=== PATIENT | male | born 1945 | race Caucasian/White ===

== ENCOUNTER 2016-06-22 10:41 | Emergency (ER) | payer MEDICARE, BC ==
[2016-06-22 10:52] VITALS: BP 150/80; PULSE 66; RESP 20; TEMP 97
[2016-06-22] MEDS ORDERED: FAMOTIDINE 20 MG TAB PO STA (10:55)
[2016-06-22] MEDS ORDERED: DEXAMETHASONE SOD PHOSPHATE 10 MG/ML 1 ML VIAL IM STA (10:55)
[2016-06-22] MEDS ORDERED: hydrOXYzine HCL 25 MG TAB PO STA (10:56)
--- NOTE | 2016-06-22 11:19 | ED ---
General Adult HPI - General Chief complaint: Allergic Reaction Stated complaint: POSS ALLERGIC REACTION Time Seen by Provider: 06/22/16 10:55 Source: patient, RN notes reviewed, old records reviewed Mode of arrival: ambulatory Limitations: no limitations - History of Present Illness Initial comments: This is a 70-year-old male here for evaluation. The patient presents for evaluation of ALLERGIC reaction, unknown ALLERGIC exposure. Patient does take several. No oral tongue swelling. Patient has had urticarial reaction is R last night, to get better with Benadryl but again woke up this morning with severe itching. Patient denies any new medications, no recent travel history or sick contacts. - Related Data Home Medications Medication Instructions Recorded Confirmed Lisinopril [Lisinopril] 10 mg PO QAM 01/08/15 06/22/16 Lovastatin [Lovastatin] 20 mg PO HS 01/08/15 06/22/16 Latanoprost [Xalatan 0.005%] 1 drop BOTH EYES HS 01/10/15 06/22/16 Allergies Allergy/AdvReac Type Severity Reaction Status Date / Time hydrocodone bitartrate Allergy prolonged Verified 06/22/16 11:10 [From [place]] jeanna Review of Systems ROS Statement: Those systems with pertinent positive or pertinent negative responses have been documented in the HPI. ROS Other: All systems not noted in ROS Statement are negative. Past Medical History Past Medical History: Hyperlipidemia, Hypertension, Prostate Disorder Additional Past Medical History / Comment(s): gallstones, enlarged prostate History of Any Multi-Drug Resistant Organisms: None Reported Past Surgical History: Hernia Repair, Orthopedic Surgery Additional Past Surgical History / Comment(s): arthroscopy left shoulder, umbilical hernia,left inguinal hernia repair,arthroscopy lt knee, arthroscopy right shoulder Past Anesthesia/Blood Transfusion Reactions: No Reported Reaction Past Psychological History: No Psychological Hx Reported Smoking Status: Never smoker Past Alcohol Use History: None Reported Past Drug Use History: None Reported - Past Family History Mother Family Medical History: Cancer Father Family Medical History: Cancer Additional Family Medical History / Comment(s): at age 57 General Exam Limitations: no limitations General appearance: alert, in no apparent distress Head exam: Present: atraumatic, normocephalic, normal inspection Eye exam: Present: normal appearance, PERRL, EOMI. Absent: scleral icterus, conjunctival injection, periorbital swelling ENT exam: Present: normal exam, mucous membranes moist Neck exam: Present: normal inspection. Absent: tenderness, meningismus, lymphadenopathy Respiratory exam: Present: normal lung sounds bilaterally. Absent: respiratory distress, wheezes, rales, rhonchi, stridor Cardiovascular Exam: Present: regular rate, normal rhythm, normal heart sounds. Absent: systolic murmur, diastolic murmur, rubs, gallop, clicks GI/Abdominal exam: Present: soft, normal bowel sounds. Absent: distended, tenderness, guarding, rebound, rigid Extremities exam: Present: normal inspection, full ROM, normal capillary refill. Absent: tenderness, pedal edema, joint swelling, calf tenderness Back exam: Present: normal inspection Neurological exam: Present: alert, oriented X3, CN II-XII intact Psychiatric exam: Present: normal affect, normal mood Skin exam: Present: warm, dry, intact, normal color, urticaria (Diffuse and trunk, hands, arms legs). Absent: rash Course Vital Signs 06/22/16 10:50 Temperature 97 F L Pulse Rate 66 Respiratory 20 Rate Blood Pressure 150/80 O2 Sat by Pulse 97 Oximetry Medical Decision Making - Medical Decision Making 70 male to,ER for evaluation of allergic urticaria , dermatitis , patient be discharged on steroids Antihistamines. Patient has no breathing difficulties no swelling of mouth or tongue Disposition Clinical Impression: Allergic reaction, Adverse reaction to drug Disposition: HOME SELF-CARE Condition: Good Instructions: Urticaria (ED) Referrals: Rod Ruano DO [Primary Care Provider] - 1-2 days
== END 2016-06-22 12:46 | disposition home or self-care (01) ==
LOC: EC 10:41
DX: L50.0 Allergic urticaria (principal); T50.905A Adverse effect of unspecified drugs, medicaments and biological substances, initial encounter; E78.5 Hyperlipidemia, unspecified; I10 Essential (primary) hypertension; Z79.899 Other long term (current) drug therapy
CPT/HCPCS: 99283; 96372; J1100

== ENCOUNTER 2016-06-23 18:06 | Emergency (ER) | payer MEDICARE, BC ==
[2016-06-23] MEDS ORDERED: Acetaminophen-Codeine 300-30mg TAB PO STA (19:02)
[2016-06-23] MEDS ORDERED: IBUPROFEN 600 MG TAB PO STA (19:02)
[2016-06-23] MEDS ORDERED: ONDANSETRON ODT 4 MG TAB PO STA (19:02)
[2016-06-23] MEDS ORDERED: cloNIDine HCL 0.1 MG TAB PO STA (19:02)
--- NOTE | 2016-06-23 19:02 | ED ---
General Adult HPI - General Chief complaint: Headache Stated complaint: headache,HTN Time Seen by Provider: 06/23/16 18:14 Source: patient, RN notes reviewed, old records reviewed Mode of arrival: ambulatory Limitations: no limitations - History of Present Illness Initial comments: This is a 70-year-old male here for evaluation. They patient comes in for evaluation of medication reaction. Patient came in the ER yesterday for evaluation of hives and ALLERGIC reaction, was given steroids injection yesterday as well as antihistamines from. Patient's having flushed face and headache today. After taking steroids. Patient states he's taken steroids before never had this reaction before. Headache is minor. Did have an episode of nausea without vomiting. - Related Data Home Medications Medication Instructions Recorded Confirmed Lisinopril [Lisinopril] 10 mg PO QAM 01/08/15 06/23/16 Lovastatin [Lovastatin] 20 mg PO HS 01/08/15 06/23/16 Latanoprost [Xalatan 0.005%] 1 drop BOTH EYES HS 01/10/15 06/23/16 Previous Rx's Medication Instructions Recorded Famotidine [Pepcid] 40 mg PO BID #30 tab 06/22/16 hydrOXYzine HCL [Atarax] 25 mg PO TID #30 tab 06/22/16 predniSONE 50 mg PO DAILY #5 tab 06/22/16 Allergies Allergy/AdvReac Type Severity Reaction Status Date / Time hydrocodone bitartrate AdvReac prolonged Verified 06/23/16 18:36 [From [place]] hicups Review of Systems ROS Statement: Those systems with pertinent positive or pertinent negative responses have been documented in the HPI. ROS Other: All systems not noted in ROS Statement are negative. Past Medical History Past Medical History: Hyperlipidemia, Hypertension, Prostate Disorder Additional Past Medical History / Comment(s): gallstones, enlarged prostate History of Any Multi-Drug Resistant Organisms: None Reported Past Surgical History: Hernia Repair, Orthopedic Surgery Additional Past Surgical History / Comment(s): arthroscopy left shoulder, umbilical hernia,left inguinal hernia repair,arthroscopy lt knee, arthroscopy right shoulder Past Anesthesia/Blood Transfusion Reactions: No Reported Reaction Past Psychological History: No Psychological Hx Reported Smoking Status: Never smoker Past Alcohol Use History: None Reported Past Drug Use History: None Reported - Past Family History Mother Family Medical History: Cancer Father Family Medical History: Cancer Additional Family Medical History / Comment(s): at age 57 General Exam Limitations: no limitations General appearance: alert, in no apparent distress Head exam: Present: atraumatic, normocephalic, normal inspection Eye exam: Present: normal appearance, PERRL, EOMI. Absent: scleral icterus, conjunctival injection, periorbital swelling ENT exam: Present: normal exam, mucous membranes moist Neck exam: Present: normal inspection. Absent: tenderness, meningismus, lymphadenopathy Respiratory exam: Present: normal lung sounds bilaterally. Absent: respiratory distress, wheezes, rales, rhonchi, stridor Cardiovascular Exam: Present: regular rate, normal rhythm, normal heart sounds. Absent: systolic murmur, diastolic murmur, rubs, gallop, clicks GI/Abdominal exam: Present: soft, normal bowel sounds. Absent: distended, tenderness, guarding, rebound, rigid Extremities exam: Present: normal inspection, full ROM, normal capillary refill. Absent: tenderness, pedal edema, joint swelling, calf tenderness Back exam: Present: normal inspection Neurological exam: Present: alert, oriented X3, CN II-XII intact Psychiatric exam: Present: normal affect, normal mood Skin exam: Present: warm, dry, intact, normal color. Absent: rash Course Vital Signs 06/23/16 18:15 Temperature 97.6 F Pulse Rate 89 Respiratory 20 Rate Blood Pressure 156/90 O2 Sat by Pulse 98 Oximetry - Reevaluation(s) Reevaluation #1: 06/23/16 19:01 Patient discussed to cease taking steroids. Patient's agreeable with plan Reevaluation #2: 06/23/16 19:01 Neck is resolved, blood pressure is improved Medical Decision Making - Medical Decision Making 74 male the ER with adverse reaction to steroids, patient will stop taking steroids at this time. Patient given medication to alleviate headache and high blood pressure, patient to continue antihistamines for ALLERGIC reaction, urticaria Disposition Clinical Impression: Allergic reaction, Adverse reaction to drug Disposition: HOME SELF-CARE Condition: Good Instructions: Prednisone (By mouth) Referrals: Rod Ruano DO [Primary Care Provider] - 1-2 days
[2016-06-23 20:09] VITALS: BP 146/73; PULSE 63; RESP 18; TEMP 97.4
== END 2016-06-23 20:10 | disposition home or self-care (01) ==
LOC: EC 18:06
DX: R51 Headache (principal); R11.0 Nausea; T38.0X5A Adverse effect of glucocorticoids and synthetic analogues, initial encounter; E78.5 Hyperlipidemia, unspecified; I10 Essential (primary) hypertension; Z79.899 Other long term (current) drug therapy; Z88.5 Allergy status to narcotic agent
CPT/HCPCS: 99284

== ENCOUNTER 2017-03-20 09:51 | Day surgery (SDC) | payer MEDICARE, BC ==
[2017-03-13 16:16] VITALS: BMI 30.2
[~2017-03-20 09:51] MED LIST: LACTATED RINGERS 1,000 ML IV SCH
[2017-03-20 10:13] VITALS: RESP 16; TEMP 98.1
--- NOTE | 2017-03-20 11:53 | P.GSHP ---
History of Present Illness H&P Date: 03/20/17 Chief Complaint: Screen colonoscopy This is a 71-year-old male referred from Dr. Rod Baker. Patient presents today for screening colonoscopy. He denies any significant complaints. Past Medical History Past Medical History: Hyperlipidemia, Hypertension, Prostate Disorder Additional Past Medical History / Comment(s): hx. kidney stones, enlarged prostate, hx. colon polyps History of Any Multi-Drug Resistant Organisms: None Reported Past Surgical History: Hernia Repair, Orthopedic Surgery Additional Past Surgical History / Comment(s): arthroscopy left shoulder, umbilical hernia,left inguinal hernia repair,arthroscopy lt knee, arthroscopy right shoulder, cataract surg. Past Anesthesia/Blood Transfusion Reactions: No Reported Reaction Smoking Status: Never smoker - Past Family History Mother Family Medical History: Cancer Father Family Medical History: Cancer Additional Family Medical History / Comment(s): at age 57 Medications and Allergies Home Medications Medication Instructions Recorded Confirmed Type Lisinopril [Lisinopril] 10 mg PO QAM 01/08/15 03/20/17 History Lovastatin [Lovastatin] 20 mg PO HS 01/08/15 03/20/17 History Allergies Allergy/AdvReac Type Severity Reaction Status Date / Time hydrocodone bitartrate AdvReac prolonged Verified 03/20/17 10:11 [From [place]] hiccups Surgical - Exam Vital Signs Temp Pulse Resp BP Pulse Ox 98.1 F 66 16 154/75 97 03/20/17 10:12 03/20/17 10:12 03/20/17 10:12 03/20/17 10:12 03/20/17 10:12 - General well developed, no distress - Eyes PERRL - ENT normal pinna - Neck no masses - Respiratory normal expansion - Cardiovascular Rhythm: regular - Abdomen Abdomen: soft, non tender Assessment and Plan Assessment: We'll perform screening colonoscopy
--- NOTE | 2017-03-20 12:19 | P.OP ---
Date of Procedure: 03/20/17 Preoperative Diagnosis: Screening colonoscopy Postoperative Diagnosis: Diverticulosis Internal and external hemorrhoids Procedure(s) Performed: Colonoscopy Anesthesia: MAC Surgeon: Shaheen Esparza Pathology: none sent Condition: stable Disposition: PACU Description of Procedure: The patient's placed on the endoscopy table lateral position. He received IV sedation. Digital rectal exam was performed which revealed internal and external hemorrhoids. The prostate was symmetrical without nodules. Flexible colonoscope was then placed patient anus passed throughout the entire colon. The colon was quite tortuous. The ileocecal valve visualized. The cecum, ascending and transverse colon appeared normal. In the descending and sigmoid colon is moderate diverticular changes. Scope was then brought back into the rectum and this appeared normal. Scope was withdrawn for patient.
[2017-03-20 12:33] VITALS: BP 121/71; PULSE 61
== END 2017-03-20 12:57 | disposition home or self-care (01) ==
LOC: ORWHC2ENDO 09:51
PROVIDERS: ATTEND Surgery
DX: Z12.11 Encounter for screening for malignant neoplasm of colon (principal); K57.30 Diverticulosis of large intestine without perforation or abscess without bleeding; K64.8 Other hemorrhoids; K64.4 Residual hemorrhoidal skin tags; Q43.8 Other specified congenital malformations of intestine; Z86.010 Personal history of colon polyps; N40.0 Benign prostatic hyperplasia without lower urinary tract symptoms; I10 Essential (primary) hypertension; E78.5 Hyperlipidemia, unspecified; Z87.442 Personal history of urinary calculi; Z79.899 Other long term (current) drug therapy; Z88.5 Allergy status to narcotic agent

== ENCOUNTER → 2018-10-09 | Outpatient (CLI) | payer MEDICARE, BC ==
[2018-10-09 10:17] LABS: Basophils % (A) 0 %; Eosinophils # (A) 0.2 k/uL (0-0.7); Eosinophils % (A) 2 %; HCT 48.2 % (39.0-53.0); Lymphocytes # (A) 1.5 k/uL (1.0-4.8); Lymphocytes % (A) 17 %; MCH 29.3 pg (25.0-35.0); MCHC 33.3 g/dL (31.0-37.0); Mean Platelet Volume 8.1; Monocytes # (A) 0.6 k/uL (0-1.0); Monocytes % (A) 6 %; Neutrophils # (A) 6.5 k/uL (1.3-7.7); Neutrophils % (A) 73 %; Platelet Count 237 k/uL (150-450); RBC 5.47 m/uL (4.30-5.90); RDW 14.6 % (11.5-15.5); WBC 8.8 k/uL (3.8-10.6)
[2018-10-09 10:26] LABS: Potassium 4.9 mmol/L (3.5-5.1)
== END | disposition home or self-care (01) ==
LOC: LABPAT 08:44
PROVIDERS: ATTEND Orthopaedic Surgery
DX: Z01.812 Encounter for preprocedural laboratory examination (principal)
CPT/HCPCS: 36415; 80051; 85025; 93005

== ENCOUNTER → 2018-10-14 | Day surgery (SDC) | payer MEDICARE, BC ==
[2018-10-08 15:16] VITALS: BMI 30.2
--- NOTE | 2018-10-12 21:59 | HP ---
HISTORY AND PHYSICAL DATE OF SURGERY: 10/14/2018 Harvey Ayala is a 73-year-old patient seen with progressive right knee pain. We discussed options for treatment. He elected to proceed with right knee arthroscopy. Consent regarding the procedure was obtained. PAST MEDICAL HISTORY: 1. Hypertension. 2. Hyperlipidemia. PAST SURGICAL HISTORY: 1. Herniorrhaphy. 2. Left knee arthroscopy. 3. Right shoulder arthroscopy. DAILY MEDICATIONS: 1. Lisinopril. 2. Lovastatin. 3. Ibuprofen. ALLERGIES: HYDROCODONE. SOCIAL HISTORY: He denies tobacco use. PHYSICAL EVALUATION OF THE RIGHT KNEE: His range of motion is 0 to 130 degrees. There is a mild effusion present. Tenderness, medial joint line. Positive medial Genny's. Ligaments stable. Hip rotation without pain. His distal neurovascular exam is intact. RIGHT KNEE RADIOGRAPHS: Right knee radiographs reveal moderate osteoarthritic changes. IMPRESSION: 1. Internal derangement of right knee with medial meniscal tear. 2. Right knee osteoarthritis. 3. Hyperlipidemia. 4. Hypertension. PLAN: Right knee arthroscopy with partial meniscectomy and debridement. MMODL / IJN: [id number] /
[~2018-10-14] MED LIST changes: +BUPIVACAIN-EPI 0.25%-1:200,000 30 ML VIAL INTRAARTIC ONE; +DEXAMETHASONE SOD PHOSPHATE 10 MG/ML 1 ML VIAL IV ONE; +LIDOCAINE 1% 20 ML VIAL (10MG/ML) FOR IV START INTRADERMA ONE; +LIDOCAINE 1% INJ 10MG/ML (20 ML MDV) ONE; +MIDAZOLAM 2 MG/2 ML VIAL IV PRN; +MIDAZOLAM 2 MG/2 ML VIAL ONE; +ONDANSETRON 4 MG/2 ML VIAL IVP ONE; +PROPOFOL 10 MG/ML 20 ML VIAL IV ONE; +SUCCINYLCHOLINE CHLORIDE 100 MG/5 ML SYR IV ONE; +fentaNYL (PF) 50 MCG/ML 2 ML AMP IV PRN; +fentaNYL (PF) 50 MCG/ML 2 ML AMP ONE
[2018-10-14 13:22] VITALS: TEMP 97.1
--- NOTE | 2018-10-14 13:25 | P.OP ---
Date of Procedure: 10/14/18 Preoperative Diagnosis: Internal derangement right knee Postoperative Diagnosis: 1. Tear medial meniscus right knee 2. Grade 4 chondromalacia medial femoral condyle right knee 3. Reactive synovitis medial, lateral and suprapatellar compartments right knee Procedure(s) Performed: 1. Arthroscopic partial medial meniscectomy right knee 2. Arthroscopic chondroplasty medial femoral condyle right knee 3. Arthroscopic microfracture medial femoral condyle right knee 4. Arthroscopic partial synovectomy medial, lateral and suprapatellar compartments right knee Anesthesia: RAJATA, local Surgeon: Frandy Hoff Estimated Blood Loss (ml): 7 Pathology: none sent Condition: stable Disposition: PACU Indications for Procedure: 73-year-old patient seen with progressive right knee pain. After having treatment options discussed, he elected to proceed with arthroscopy. Operative Findings: see description of procedure Description of Procedure: Patient was taken to the operative suite. Patient underwent a general anesthetic by the department of anesthesia. Patient was given preoperative antibiotics. The] lower extremity was placed in a well-padded arthroscopic leg brandt. The right leg was prepped and draped in the normal sterile orthopedic fashion. A lateral parapatellar and suprapatellar incision was made. Trochars were inserted. Arthroscopy was initiated. Suprapatellar pouch revealed diffuse thick reactive synovitis. The patellofemoral joint appeared to articulate congruently. There was grade 1/2 chondromalacia of the patellofemoral joint with no osteochondral tears present.. The scope was guided into the medial gutter. Loose bodies or plica were identified. The scope was then guided into the medial compartment. A medial parapatellar incision was made. Trocar inserted followed by probe. There was a complex tear involving the mid body and posterior horn medial meniscus. There was an area of grade 4 chondromalacia central weightbearing surface medial femoral condyle with some osteochondral flap tears present. There was thick reactive synovitis anteriorly. I performed a partial medial meniscectomy getting down to stable meniscal tissue. I performed a chondroplasty of the medial femoral condyle getting down to stable osteochondral tissue. I performed a partial synovectomy decompressing the reactive synovitis. The residual meniscus was stable. There was good decompression of synovitis. There was a 1 cm area of exposed bone in the medial femoral condyle. I performed a microfracture to that area penetrating the bone with resultant bleeding at the microfracture site. Scope and probe were then guided into the intercondylar notch. Cruciates were identified, probed and found to be stable. The scope and probe were then guided into lateral compartment. With some mild fraying of the posterior horn lateral meniscus. There were grade 1 chondromalacia changes lateral compartment with no osteochondral tears present. There was thick reactive synovitis anteriorly. I utilized the motorized shaver to debride that superficial fraying and I performed a partial synovectomy decompressing the thick reactive synovitis. There appeared be good decompression of synovitis. The scope was in guided back into the suprapatellar compartment. I introduced a motorized shaver into the super patellar compartment. I debrided some piecemeal fragments of meniscus I encountered. I performed a partial synovectomy decompressing the reactive synovitis. The shaver was removed. I took one more look on the entire knee, no residual debris. Instruments were now removed from the joint. The joint was infiltrated with .25% Marcaine. Steri-Strips were applied to the portal sites. Sterile dressings were applied. The patient was placed into a FRANCIS hose. No tourniquet was utilized. The patient was awakened, transferred to a bed and taken to recovery stable satisfactory condition.
[2018-10-14 14:08] VITALS: BP 119/69; PULSE 59; RESP 18
== END | disposition home or self-care (01) ==
LOC: OR 10:37
PROVIDERS: ATTEND Orthopaedic Surgery
DX: S83.231A Complex tear of medial meniscus, current injury, right knee, initial encounter (principal); M65.9 Synovitis and tenosynovitis, unspecified; M17.11 Unilateral primary osteoarthritis, right knee; M94.261 Chondromalacia, right knee; I10 Essential (primary) hypertension; E78.5 Hyperlipidemia, unspecified; K21.9 Gastro-esophageal reflux disease without esophagitis; Z87.442 Personal history of urinary calculi; X58.XXXA Exposure to other specified factors, initial encounter; Z88.5 Allergy status to narcotic agent; Z88.8 Allergy status to other drugs, medicaments and biological substances
CPT/HCPCS: 29881; 29879; 29876; J2250; J1100; J0690; J2405; J2001; J3010; J0330; J2704

== ENCOUNTER 2019-04-03 12:14 | Emergency (ER) | payer MEDICARE, BC ==
[2019-04-03 12:29] VITALS: PULSE 57; RESP 18; TEMP 98
[2019-04-03 13:10] VITALS: BP 156/94
--- NOTE | 2019-04-03 13:25 | ED ---
Recheck HPI - General Chief Complaint: Recheck/Abnormal Lab/Rx Stated Complaint: elevated BP Time Seen by Provider: 04/03/19 12:31 Source: patient Mode of arrival: ambulatory Limitations: no limitations - History of Present Illness Initial Comments: Patient is a 73-year-old male presenting to the emergency department with concerns for elevated blood pressure. Patient states the last few days has been noticing slightly increasing so he's been tracking and every few hours since then. Patient states he is normally in the 120s to 130s. The last few days has been increasing to the 150s with today in the 170s. He states just prior to arrival he did his blood pressure was 180s. Patient denies having any other symptoms including headache, blurry vision, chest pain, shortness of breath, nausea. He states he has been on lisinopril for over 20 years now and has not had any issues with his blood pressure. Patient admits to having a right knee arthroscopic done in September and has been struggling with continued pain in his knee. He does have a follow-up with his knee surgeon in a few weeks. Patient states he has been taking ibuprofen for his knee discomfort. He has no other medicine changes. He denies any other complaints at this time. Upon arrival to the ER, blood pressure is 183/87, rest of vitals are normal. - Related Data Home Medications Medication Instructions Recorded Confirmed Lisinopril 10 mg PO QAM 01/08/15 10/14/18 Lovastatin 20 mg PO HS 01/08/15 10/14/18 Previous Rx's Medication Instructions Recorded traMADol HCl [Ultram] 50 mg PO Q6H PRN #28 tab 10/14/18 Allergies Allergy/AdvReac Type Severity Reaction Status Date / Time hydrocodone bitartrate AdvReac prolonged Verified 04/03/19 12:29 [From [place]] hiccups Review of Systems ROS Statement: Those systems with pertinent positive or pertinent negative responses have been documented in the HPI. ROS Other: All systems not noted in ROS Statement are negative. Past Medical History Past Medical History: GERD/Reflux, Hyperlipidemia, Hypertension, Osteoarthritis (OA) Additional Past Medical History / Comment(s): hx. kidney stones, was using eye drops for pressure but none needed since cataract surgery History of Any Multi-Drug Resistant Organisms: None Reported Past Surgical History: Hernia Repair, Orthopedic Surgery, Tonsillectomy Additional Past Surgical History / Comment(s): arthroscopy yeni shoulders,umbilical hernia,left inguinal hernia repair,arthroscopy lt knee x2, yeni cataract surg. Past Anesthesia/Blood Transfusion Reactions: No Reported Reaction Past Psychological History: No Psychological Hx Reported Smoking Status: Never smoker Past Alcohol Use History: None Reported Past Drug Use History: None Reported - Past Family History Mother Family Medical History: Cancer Additional Family Medical History / Comment(s): breast Father Family Medical History: Cancer Additional Family Medical History / Comment(s): at age 57 General Exam - General Exam Comments Initial Comments: GENERAL: Well-appearing, well-nourished and in no acute distress. HEAD: Atraumatic, normocephalic. EYES: Pupils equal round and reactive to light, extraocular movements intact, sclera anicteric, conjunctiva are normal. ENT: TMs normal, nares patent, oropharynx clear without exudates. Moist mucous membranes. NECK: Normal range of motion, supple without lymphadenopathy or JVD. LUNGS: Breath sounds clear to auscultation bilaterally and equal. No wheezes rales or rhonchi. HEART: Regular rate and rhythm without murmurs, rubs or gallops. ABDOMEN: Soft, nontender, normoactive bowel sounds. No guarding, no rebound. No masses appreciated. : Deferred EXTREMITIES: Normal range of motion, no pitting or edema. No clubbing or cyanosis. Sensation is equal in bilateral lower and upper extremities. NEUROLOGICAL: Cranial nerves II through XII grossly intact. Normal speech, normal gait. PSYCH: Normal mood, normal affect. SKIN: Warm, Dry, normal turgor, no rashes or lesions noted. Limitations: no limitations Course Vital Signs 04/03/19 04/03/19 12:26 13:10 Temperature 98.0 F Pulse Rate 57 L Respiratory 18 Rate Blood Pressure 183/87 156/94 O2 Sat by Pulse 96 Oximetry Medical Decision Making - Medical Decision Making Patient is a 73-year-old male presenting with concerns for elevated blood pressure last few days. He is completely asymptomatic today. His exam is unremarkable. Upon arrival to the ER his blood pressure was 183/87. Upon recheck approximately 45 min later it is 156/94. He remains asymptomatic. Patient will continue to monitor blood pressure 3 times a day and will follow up with his PCP. Return parameters were discussed with the patient he verbalizes understanding. He is stable for discharge at this time. Case discussed with Dr. Marin. Disposition Clinical Impression: Hypertension Disposition: HOME SELF-CARE Condition: Stable Instructions (If sedation given, give patient instructions): Hypertension (ED) Additional Instructions: Please return to the Emergency Department if symptoms worsen or any other concerns. Only check blood pressure 3 times a day, morning, noon, and the evening. Follow-up with PCP as discussed. Is patient prescribed a controlled substance at d/c from ED?: No Referrals: Rod Ruano DO [Primary Care Provider] - 1-2 days
== END 2019-04-03 13:33 | disposition home or self-care (01) ==
LOC: EC 12:14
DX: R03.0 Elevated blood-pressure reading, without diagnosis of hypertension (principal); I10 Essential (primary) hypertension; E78.5 Hyperlipidemia, unspecified; M19.90 Unspecified osteoarthritis, unspecified site; Z79.899 Other long term (current) drug therapy; Z88.8 Allergy status to other drugs, medicaments and biological substances
CPT/HCPCS: 99283

== ENCOUNTER → 2019-11-04 | Outpatient (CLI) | payer MEDICARE, BC | END | disposition home or self-care (01) | LOC: LABPAT 08:33 | PROVIDERS: ATTEND Orthopaedic Surgery | DX: Z01.812 Encounter for preprocedural laboratory examination (principal) | CPT/HCPCS: 36415; 87070 ==

== ENCOUNTER 2019-12-07 05:54 | Day surgery (SDC) | payer MEDICARE, BC ==
--- NOTE | 2019-12-06 16:33 | HP ---
HISTORY AND PHYSICAL DATE OF SERVICE: 12/07/2019 Harvey Ayala is a 74-year-old patient seen with progressive right knee pain. Treatment options were discussed. He elected to proceed with right total knee arthroplasty. Consent regarding the procedure was obtained. Clearance was provided by Dr. Rod Ruano. PAST MEDICAL HISTORY: Hypertension, hyperlipidemia. PAST SURGICAL HISTORY: Knee arthroscopy, shoulder arthroscopy, herniorrhaphy. DAILY MEDICATIONS: Lisinopril, lovastatin, ibuprofen. ALLERGIES: HYDROCODONE. SOCIAL HISTORY: Denies current tobacco use. PHYSICAL EVALUATION OF THE RIGHT KNEE: His range of motion is negative 2 to 130. Tenderness along medial joint line. Crepitus along the medial patellofemoral compartments with range of motion. Pain with patellofemoral compression. Ligaments stable. Hip rotation without pain. Distal neurovascular exam is intact. RADIOGRAPHS: Right knee radiographs reveal severe osteoarthritic changes. IMPRESSION: 1. Right knee osteoarthritis. 2. Hypertension. 3. Hyperlipidemia. PLAN: Right total knee arthroplasty. MMODL / IJN: [id number] /
[~2019-12-07 05:54] MED LIST changes: +ACETAMINOPHEN TAB 500 MG TAB PO ONE; -BUPIVACAIN-EPI 0.25%-1:200,000 30 ML VIAL INTRAARTIC ONE; -DEXAMETHASONE SOD PHOSPHATE 10 MG/ML 1 ML VIAL IV ONE; -LACTATED RINGERS 1,000 ML IV SCH; -LIDOCAINE 1% 20 ML VIAL (10MG/ML) FOR IV START INTRADERMA ONE; -LIDOCAINE 1% INJ 10MG/ML (20 ML MDV) ONE; +MELOXICAM 7.5 MG TAB PO ONE; -MIDAZOLAM 2 MG/2 ML VIAL IV PRN; -MIDAZOLAM 2 MG/2 ML VIAL ONE; -ONDANSETRON 4 MG/2 ML VIAL IVP ONE; -PROPOFOL 10 MG/ML 20 ML VIAL IV ONE; -SUCCINYLCHOLINE CHLORIDE 100 MG/5 ML SYR IV ONE; +TRANEXAMIC ACID 1,000 MG in SODIUM CHLORIDE 0.9% 100 ML IVPB ONE; -fentaNYL (PF) 50 MCG/ML 2 ML AMP IV PRN; -fentaNYL (PF) 50 MCG/ML 2 ML AMP ONE
[2019-12-07] MEDS ORDERED: ROPIVACAINE 246.25 MG, EPINEPHrine 0.5 MG, KETOROLAC 30 MG, cloNIDine HCL/PF 80 MCG, WA... MISCELLANE ONE ×5 (06:00)
[2019-12-07] MEDS ORDERED: LACTATED RINGERS 1,000 ML IV SCH (06:01)
[2019-12-07] MEDS ORDERED: HYDROmorphone 0.5 MG/0.5 ML SYRINGE IVP PRN ×3 (06:01→09:18)
[2019-12-07] MEDS ORDERED: DEXAMETHASONE SOD PHOSPHATE 10 MG/ML 1 ML VIAL IV ONE (06:01)
[2019-12-07] MEDS ORDERED: LIDOCAINE 1% (10MG/ML) FOR IV START INTRADERMA PRN (06:01)
[2019-12-07] MEDS ORDERED: ONDANSETRON 4 MG/2 ML VIAL IVP ONE (06:01)
[2019-12-07] MEDS ORDERED: fentaNYL (PF) 50 MCG/ML 2 ML AMP IV ONE (06:58)
[2019-12-07] MEDS ORDERED: MIDAZOLAM 2 MG/2 ML VIAL IV ONE (06:58)
[2019-12-07] MEDS ORDERED: fentaNYL (PF) 50 MCG/ML 2 ML AMP ONE (07:28)
[2019-12-07] MEDS ORDERED: MIDAZOLAM 2 MG/2 ML VIAL ONE (07:28)
[2019-12-07] MEDS ORDERED: TRANEXAMIC ACID 1,000 MG/10 ML VIAL ONE (07:28)
[2019-12-07] MEDS ORDERED: PROPOFOL 10 MG/ML 20 ML VIAL IV ONE (07:28)
[2019-12-07] MEDS ORDERED: SODIUM CHLORIDE 0.9% 100 ML BAG ONE (07:28)
[2019-12-07] MEDS ORDERED: LACTATED RINGERS 1,000 ML IV ONE (08:37)
[2019-12-07] MEDS ORDERED: HYDROcodone/APAP 5-325MG 1 EACH TAB PO PRN ×2 (09:18)
[2019-12-07] MEDS ORDERED: NALOXONE 0.4 MG/ML 1 ML VIAL IV PRN (09:18)
[2019-12-07] MEDS ORDERED: ONDANSETRON 4 MG/2 ML VIAL IVP PRN (09:18)
--- NOTE | 2019-12-07 09:18 | P.OP ---
Date of Procedure: 12/07/19 Preoperative Diagnosis: Right knee osteoarthritis Postoperative Diagnosis: Right knee osteoarthritis Procedure(s) Performed: Right total knee arthroplasty Implants: 1. Depuy attune size 7 right cruciate-retaining cemented femur 2. Depuy attune size 7 fixed bearing cemented tibial baseplate 3. Depuy attune size 7 fixed bearing cruciate retaining 6 mm polyethylene tibial insert 4. Depuy attune 41 mm all polyethylene cemented patella Anesthesia: regional (adductor canal catheter), local, spinal Surgeon: Farndy Hoff Shore Working Supervisor #1: Vince Mayer Estimated Blood Loss (ml): 50 Pathology: other (Bone) Condition: stable Disposition: PACU Indications for Procedure: 74-year-old patient seen with symptomatic right knee osteoarthritis. After treatment options were discussed, he elected to proceed with total knee art hroplasty. Operative Findings: see description of procedure Description of Procedure: Patient was taken to the operative suite after having an adductor canal catheter placed by the department of anesthesia. Patient underwent a spinal anesthetic by the department of anesthesia. Patient was given preoperative IV intake antibiotics and TXA. A well-padded tourniquet was placed about the right lower extremity. The lower extremity was then prepped and draped in the normal sterile orthopedic fashion. The extremity was elevated, a tourniquet was insufflated to 300. A standard anterior incision was made sharply through skin. Dissection was taken down through the subcutaneous soft tissues down to the extensor mechanism. A medial arthrotomy was performed, patella was everted and knee was flexed. There was advanced osteoarthritis noted. I introduced my distal intramedullary femoral drill. I then introduced the distal femoral cutting jig. Markus SCHWARTZ secured the cutting jig with 2 pins. I held retractors in position while Markus SCHWARTZ performed the distal femoral resection through the guide area we now removed her distal femoral cutting guide. We now placed our 4-in-1 femoral cutting block and positioned and it was secured with 2 pins by Markus SCHWARTZ while I held the block in position. The distal femoral finishing was now completed. A proximal tibial cutting guide was positioned. I held the guide in the appropriate position with both hands well Markus SCHWARTZ inserted stabilizing pins into the guide. Proximal tibial cut was made. We now placed a trial femoral component into position, along with an appropriate size tibial tray and insert. We now took the knee through range of motion and had full extension good flexion and good overall soft tissue balance noted. The patella was everted and stabilized with 2 towel clips held by Markus SCHWARTZ while I performed a flush with patellar quad tendon utilizing a fresh sawblade. We templated the patella, appropriate drill holes were made. An appropriate trial patella was positioned, knee was taken through full range of motion with the patella tracking very nicely. The trial patella was removed. Drill holes were made through the femoral component. All trial components were removed after marking off the appropriate rotation of the tibia. Retractors w ere now positioned along the proximal tibia. An appropriate keel punch was made with the appropriate size tibial guide by myself on Markus SCHWARTZ assisted by holding retractors. At this point appropriate size implants were chosen and opened. The joint was irrigated copiously with pulse lavage mechanical irrigation. The posterior capsule was infiltrated with local analgesic. The wound was irrigated with pulse lavage mechanical irrigation. We mixed antibiotic methylmethacrylate. We placed the knee into flexion. We placed multiple retractors assisted by Markus SCHWARTZ to expose the proximal tibia. Once the methyl methacrylate was ready, the tibial component was cemented into place removing any excess methylmethacrylate form by both myself and Markus SCHWARTZ. The femoral component was cemented into place removing the removing any excess methylmethacrylate performed by both myself and Markus SCHWARTZ. We then inserted the appropriate size polyethylene tibial insert. We made sure that it was locked into position. We took the knee into full extension, and then back in a flexion making sure we had removed any excess methylmethacrylate. The patellar component was then cemented down and secured with clamp. Excess methylmethacrylate removed. We kept the knee in full extension, patellar clamp in position until methylmethacrylate had hardened. Once it had hardened the patellar clamp was removed. The knee was taken through full range of motion. The patella tracked nicely. There was good soft tissue balancing. The tourniquet was now released. Additional hemostasis was achieved via electrocautery. A second gram of TXA was given. The wound again was irrigated with pulse lavage mechanical irrigation. The superficial soft tissues were infiltrated local analgesic. The extensor mechanism was repaired with Vicryl. We checked the repair with range of motion and it was stable. The subcutaneous soft tissues were repaired with Vicryl in layers. The skin was approximated with pernio/Dermabond. Sterile dressings were applied followed by loose web roll and Evens bandage. The patient was transferred to a bed, and taken to recovery in stable and satisfactory condition. Markus SCHWARTZ assisted with this complex procedure.
[2019-12-07] MEDS ORDERED: ROPIVACAINE 0.2%-NS ON-Q PUMP 1,090 MG, EMPTY PAIN BALL 1 EACH MISCELLANE PRN (09:23)
--- NOTE | 2019-12-07 09:26 | P.ANPRN ---
Procedure Note - Anesthesia - Nerve Block Performed Right Adductor Canal Time Out Performed: Yes (06:55) Date of Procedure: 12/07/19 Procedure Start Time: :55 Procedure Stop Time: :18 Location of Patient: PreOp Indication: Acute Post-Operative Pain (Dr Hoff), Requested by Surgeon Sedation Type: Sedate with meaningful contact maintained Preparation: Sterile Prep, Sterile Dressing Position: Supine Catheter: Indwelling Needle Types: Pajunk Needle Gauge: 21 Ultrasound used to visualize needle placement: Yes Ultrasound used to observe medication spread: Yes Injectate: 0.5% Ropivacaine (see comment for volume) (20cc) Blood Aspirated: No Pain Paresthesia on Injection Noted: No Resistance on Injection: Normal Image Stored and Saved: Yes Events: Uneventful and Well Tolerated
[2019-12-07] MEDS: LACTATED RINGERS 1,000 ML IV SCH (10:08)
--- NOTE | 2019-12-07 10:09 | XR ---
EXAMINATION TYPE: XR knee limited RT DATE OF EXAM: 12/07/2019 CLINICAL HISTORY: Postoperative evaluation Two views of the right knee are submitted. Identified are changes of total knee arthroplasty with femoral and tibial components appearing well seated. Postsurgical soft tissue changes are noted. Alignment is anatomic.
[2019-12-07] MEDS: HYDROmorphone 0.5 MG/0.5 ML SYRINGE IVP PRN ×2 (14:37→20:19)
[2019-12-07] MEDS: ENOXAPARIN 30 MG/0.3 ML SYRINGE SQ SCH (20:24)
[2019-12-07] MEDS ORDERED: SENNOSIDES-DOCUSATE SODIUM 1 EACH TAB PO SCH (21:00)
[2019-12-08] MEDS: HYDROmorphone 0.5 MG/0.5 ML SYRINGE IVP PRN ×3 (00:01→08:58)
[2019-12-08] MEDS: LACTATED RINGERS 1,000 ML IV SCH (02:42)
[2019-12-08 06:32] LABS: Basophils % (A) 0 %; Eosinophils % (A) 0 %; HCT 38.8 % (39.0-53.0); Lymphocytes # (A) 1.1 k/uL (1.0-4.8); Lymphocytes % (A) 9 %; MCH 29.4 pg (25.0-35.0); MCHC 32.2 g/dL (31.0-37.0); MCV 91.2 fL (80.0-100.0); Mean Platelet Volume 8.2; Monocytes # (A) 0.9 k/uL (0-1.0); Monocytes % (A) 7 %; Neutrophils # (A) 10.5 k/uL (1.3-7.7); Neutrophils % (A) 83 %; Platelet Count 184 k/uL (150-450); RBC 4.25 m/uL (4.30-5.90); RDW 12.9 % (11.5-15.5); WBC 12.7 k/uL (3.8-10.6)
[2019-12-08 06:39] LABS: HGB 12.5 gm/dL (13.0-17.5)
[2019-12-08] MEDS: ENOXAPARIN 30 MG/0.3 ML SYRINGE SQ SCH (07:02)
[2019-12-08 08:32] VITALS: BP 112/69; PULSE 62; RESP 18; TEMP 98
[2019-12-08] MEDS ORDERED: MELOXICAM 7.5 MG TAB PO SCH (09:00)
[2019-12-08] MEDS ORDERED: traMADol 50 MG TAB PO PRN (09:33)
--- NOTE | 2019-12-08 11:51 | P.PN ---
Subjective Progress Note Date: 12/08/19 Principal diagnosis: Status post right total knee arthroplasty patient evaluated at bedside today, he is resting comfortably. He is done very well with therapy. His pain is well-controlled. He denies any chest pain, shortness of breath, nausea, vomiting or stomach discomfort. Objective - Vital Signs Vital signs: Vital Signs Temp 98.0 F 12/08/19 07:00 Pulse 62 12/08/19 07:00 Resp 18 12/08/19 07:00 BP 112/69 12/08/19 07:00 Pulse Ox 96 12/08/19 07:00 Intake & Output 12/07/19 12/08/19 12/08/19 18:59 06:59 18:59 Intake Total 1950 Output Total 50 Balance 1900 Weight 95.8 kg Intake: IV 1949 Output: Estimated Blood Loss 50 Other: Voiding Method Toilet Toilet # Voids 1 - Exam Right lower extremity: Incision is clean, dry, and intact. The foam dressing is in good condition. There is minimal soft tissue swelling and ecchymosis surrounding the medial and lateral aspects of the incision. Calf is soft, no tenderness with palpation. Plantar flexion, dorsiflexion, EHL, FHL are intact. Sensory exam to light touch throughout the extremity is intact, dorsal pedis pulses 2+. - Labs CBC & Chem 7: 12/08/19 06:03 Labs: Abnormal Lab Results - Last 24 Hours (Table) 12/08/19 Range/Units 06:03 WBC 12.7 H (3.8-10.6) k/uL RBC 4.25 L (4.30-5.90) m/uL Hgb 12.5 L D (13.0-17.5) gm/dL Hct 38.8 L (39.0-53.0) % Neutrophils # 10.5 H (1.3-7.7) k/uL Assessment and Plan Assessment: Status post right total knee arthroplasty Plan: Pain control, discharge home on tramadol 50 mg DVT prophylaxis, aspirin 81 mg twice a day Wound care instructions discussed Medical recommendations Home therapy and nursing after discharge Plan for discharge home today Time with Patient: Less than 30
--- NOTE | 2019-12-08 11:53 | P.DS ---
Providers Date of admission: 12/07/2019 Expected date of discharge: 12/08/19 Attending physician: Frandy Hoff Primary care physician: Rdo Ruano [facility] Course: Date of admission: 12/07/2019 Date of discharge: 12/08/2019 Admission diagnosis: Status post right total knee arthroplasty Discharge diagnosis: Same Attending physician: Dr. Hoff Surgical procedures: Right total knee arthroplasty Brief history: Patient is a 74-year-old male with a history of Progressive primary right knee osteoarthritis. At this point patient has failed conservative treatment measures and has opted to proceed with a elective Right total knee arthroplasty. Hospital course: Details of patient's surgery can be found in operative report. Patient tolerated the procedure well and was subsequently transported to orthopedic floor. Patient's orthopeidc and medical care was provided daily. Patient had daily laboratory tests performed for evaluation of overall blood counts. Patient had daily physical therapy to include strengthening range of motion as well as education with walker ambulation. Patient was treated with Lovenox for their postoperative DVT prophylaxis during their inpatient stay. Patient was noted to have a relatively uneventful postoperative course. Patient reported satisfactory pain control with oral pain medications by postoperative day 0. Patient showed satisfactory progress with physical therapy. Patient moved steadily through the program and had no difficulty meeting the goals by postoperative day 1. Given patient's otherwise satisfactory course and having met physical therapy goals, plan is to discharge patient home on postoperative day 1. Discharge condition/disposition: Patient will be discharged home in stable condition. Discharge medications: Instructions are given on resumption of patient's normal daily medications per primary care recommendation, in addition patient will be prescribed tramadol 50 mg, Colace 100 mg, aspirin 81 mg. Discharge instructions: 1. Wound care and infection precautions, keep incision dry and covered while showering, no lotions, creams, moisturizers. No soaking, tubs, pools, hottubs. Do not scrub over the incision. 2. Weight-bear as tolerated with walker / cane until follow-up. 3. Ice and elevate when necessary. Do not exceed 20 minutes per hour with ice pack. 4. Utilize compression sleeve until seen at first follow up appointment. 5. Visiting nursing care. 6. Home physical therapy including home CPM. 7. Pain meds and anticoagulants per prescription. 8. Pain medication has potential to cause constipation. Increase oral fluid and fiber intake. Contact primary care provider if you have not had a bowel movement within 48 hours after discharge 9. No anti-inflammatory medication until discussed at first post operative visit, this including Motrin, Aleve, Mobic, Diclofenac 10. Follow up in office at 2 weeks postop with Markus Mayer PA-C 11. Follow up with your primary care doctor 7-10 days after discharge. 12. Contact [facility] with any questions, . Procedures: Right total knee arthroplasty Patient Condition at Discharge: Good Plan - Discharge Summary Discharge Rx Participant: No New Discharge Prescriptions: New Aspirin [Adult Low Dose Aspirin EC] 81 mg PO BID #60 tablet. Docusate [Colace] 100 mg PO DAILY #30 capsule traMADol HCl [Ultram] 50 mg PO Q6H PRN #28 tab PRN Reason: Pain No Action lisinopriL [Lisinopril] 20 mg PO QAM Simvastatin [Zocor] 20 mg PO HS Calcium Carbonate [Tums] 1 - 2 tab PO DAILY PRN PRN Reason: Indigestion Discharge Medication List lisinopriL [Lisinopril] 20 mg PO QAM 01/08/15 [History] Calcium Carbonate [Tums] 1 - 2 tab PO DAILY PRN 12/06/19 [History] Simvastatin [Zocor] 20 mg PO HS 12/06/19 [History] Aspirin [Adult Low Dose Aspirin EC] 81 mg PO BID #60 tablet. 12/08/19 [Rx] Docusate [Colace] 100 mg PO DAILY #30 capsule 12/08/19 [Rx] traMADol HCl [Ultram] 50 mg PO Q6H PRN #28 tab 12/08/19 [Rx] Follow up Appointment(s)/Referral(s): Vince Mayer PAC [PHYSICIAN ADMINISTRATIVE ANALYST] - 2 Weeks [facility] Visiting Nurse, [NON-STAFF] - Activity/Diet/Wound Care/Special Instructions: Orthopedic Discharge Instructions: 1. Wound care and infection precautions, keep incision dry and covered while showering, no lotions, creams, moisturizers. No soaking, pools, hot tubs. Do not scrub over incision. 2. Weight-bear [as tolerated] with walker / cane until follow-up. 3. Ice and elevate when necessary. Do not exceed 20 minutes per hour with ice pack. 4. Utilize compression sleeve until seen at first follow up appointment. 5. Pain meds and anticoagulants per prescription. 6. Pain medication has potential to cause constipation. Increase oral fluid and fiber intake. Contact primary care provider if you have not had a bowel movement within 48 hours after discharge. 7. No anti-inflammatory medication until discussed at first post operative visit, this including Motrin, Aleve, Mobic, Diclofenac 8. Follow up in office at 2 weeks postop with Markus Mayer PA-C 9. Follow up with your primary care doctor 7-10 days after discharge. 10. Contact [facility] with any questions, [phone]. 11. *Please call [facility] once home to arrange for delivery of Continuous Passive Motion (CPM) machine: [phone]. Discharge Disposition: HOME WITH HOME HEALTH SERVICES
[2019-12-08] MEDS ORDERED: PANTOPRAZOLE 40 MG/10 ML VIAL IVP SCH (12:15)
--- NOTE | 2019-12-08 12:35 | P.PN ---
Progress Note - Text Progress Note Date: 12/08/19 patient was seen at 6:30 AM this morning patient is POD 1 s/p right total knee, patient has a right adductor canal catheter patient reports good pain management rating his pain as 2-3/10 he denies excessive numbness or weakness no redness or discharge at the the catheter insertion site patient will pull out the catheter once the onQ pump is empty
--- NOTE | 2019-12-08 13:09 | P.CONS ---
History of Present Illness - Reason for Consult Consult date: 12/08/19 Medical management hypertension, gastroesophageal reflux disease Requesting physician: Frandy Hoff - Chief Complaint Right knee osteoarthritis - History of Present Illness This is a 74-year-old gentleman with past medical history of gastroesophageal reflux disease, hyperlipidemia, hypertension, right knee osteoarthritis, failed outpatient treatment, status post right total knee arthroplasty postop day 1. Tolerated procedure well. Ambulating, tolerating exertion well. Passing flatus. Denies nausea or vomiting. Denies chest pain, palpitations or shortness of breath. Pain controlled. Afebrile, mild leukocytosis, 12.7, hemoglobin 12.5, platelets 184. Review of Systems Constitutional: Denied any fatigue denied any fever. Cardio vascular: denied any chest pain, palpitations Gastrointestinal denied any nausea vomiting Pulmonary: Denied any shortness of breath cough Neurologic denied any new focal deficits ROS Statement: Those systems with pertinent positive or pertinent negative responses have been documented in the HPI. ROS Other: All systems not noted in ROS Statement are negative. Past Medical History Past Medical History: GERD/Reflux, Hyperlipidemia, Hypertension, Osteoarthritis (OA) Additional Past Medical History / Comment(s): hx. kidney stones, was using eye drops for pressure but none needed since cataract surgery History of Any Multi-Drug Resistant Organisms: None Reported Past Surgical History: Hernia Repair, Orthopedic Surgery Additional Past Surgical History / Comment(s): RIGHT KNEE ARTHRO IN 2019. BILATERAL CATARACTS WITH LENS IMPLANTS. Past Anesthesia/Blood Transfusion Reactions: No Reported Reaction Past Psychological History: No Psychological Hx Reported Smoking Status: Never smoker Past Alcohol Use History: None Reported Past Drug Use History: None Reported - Past Family History Father Family Medical History: Cancer, Deep Vein Thrombosis (DVT) Mother Family Medical History: Cancer Medications and Allergies Home Medications Medication Instructions Recorded Confirmed Type lisinopriL [Lisinopril] 20 mg PO QAM 01/08/15 12/07/19 History Calcium Carbonate [Tums] 1 - 2 tab PO DAILY PRN 12/06/19 12/07/19 History Simvastatin [Zocor] 20 mg PO HS 12/06/19 12/07/19 History Aspirin [Adult Low Dose Aspirin EC] 81 mg PO BID #60 tablet.dr 12/08/19 Rx Docusate [Colace] 100 mg PO DAILY #30 capsule 12/08/19 Rx Sennosides-Docusate Sodium 2 each PO HS tab 12/08/19 Rx [Senokot-S] traMADol HCl [Ultram] 50 mg PO Q6H PRN #28 tab 12/08/19 Rx Allergies Allergy/AdvReac Type Severity Reaction Status Date / Time hydrocodone bitartrate AdvReac prolonged Verified 12/07/19 06:25 [From [place]] hiccups Physical Exam Vitals: Vital Signs Temp Pulse Pulse Pulse Resp BP BP 12/08/19 07:00 98.0 F 62 18 112/69 12/08/19 01:45 97.8 F 69 16 114/55 12/08/19 00:00 16 12/07/19 19:00 98.4 F 63 17 119/61 12/07/19 16:00 68 20 12/07/19 14:54 98.1 F 68 20 130/69 12/07/19 14:12 17 12/07/19 13:30 18 119/70 12/07/19 12:15 76 112/68 12/07/19 12:00 71 110/65 12/07/19 11:45 77 110/65 12/07/19 11:30 68 113/63 12/07/19 11:15 67 108/67 12/07/19 11:00 71 102/67 12/07/19 10:45 65 129/76 12/07/19 10:30 97.5 F L 61 121/72 12/07/19 10:17 63 16 109/65 12/07/19 10:15 58 L 16 109/65 12/07/19 10:00 58 L 16 102/51 12/07/19 09:45 56 L 16 98/54 Pulse Ox 12/08/19 07:00 96 12/08/19 01:45 93 L 12/08/19 00:00 12/07/19 19:00 94 L 12/07/19 16:00 12/07/19 14:54 95 12/07/19 14:12 12/07/19 13:30 96 12/07/19 12:15 12/07/19 12:00 12/07/19 11:45 12/07/19 11:30 12/07/19 11:15 12/07/19 11:00 95 12/07/19 10:45 95 12/07/19 10:30 96 10/14/20 10:17 92 L 12/07/19 10:15 93 L 12/07/19 10:00 93 L 12/07/19 09:45 93 L Intake and Output 12/07/19 12/08/19 12/08/19 22:59 06:59 14:59 Other: Voiding Method Toilet Toilet # Voids 1 1 PHYSICAL EXAM: VITAL SIGNS: As above GENERAL: Sitting up in a chair, no acute distress HEENT: Conjunctivae normal. eyes normal. Oral mucosa moist NECK: No JVD. No thyroid enlargement. No LNs CARDIOVASCULAR: S1, S2 regular.. No murmur RESPIRATION: Breath sounds diminished in the bases. No rhonchi or crackles. No bronchial breathing. ABDOMEN: Soft, nontender . No guarding. no masses palpable. No ascites, No hepatosplenomegaly.Bowel sounds heard. LEGS: Right lower extremity, the surgical site with mild edema, dressing clean dry and intact. Denies calf tenderness. +DP. PSYCHIATRY: Alert and oriented X3, mood and affect normal. NERVOUS SYSTEM: Cranial N 2-12 grossly normal. Moves all 4 limbs. No focal deficits. Strength and sensation grossly intact.. Skin: Warm and dry, no rash Results CBC & Chem 7: 12/08/19 06:03 Labs: Abnormal Lab Results - Last 24 Hours (Table) 12/08/19 Range/Units 06:03 WBC 12.7 H (3.8-10.6) k/uL RBC 4.25 L (4.30-5.90) m/uL Hgb 12.5 L D (13.0-17.5) gm/dL Hct 38.8 L (39.0-53.0) % Neutrophils # 10.5 H (1.3-7.7) k/uL Assessment and Plan Assessment: Right knee osteoarthritis, status post right total knee arthroplasty Hypertension, currently systolic blood pressure in the 1 teens, resume JUAN inhibitor starting tomorrow Mild leukocytosis, suspect reactive Mild acute postoperative blood loss anemia Hyperlipidemia Gastroesophageal reflux disease, on PPI Plan: Continue on current medication regime ,monitoring and symptomatic treatment. Pain medication/DVT prophylaxis as per primary. GI prophylaxis in place. Home meds have been reviewed and resumed, with JUAN inhibitor to be resumed tomorrow. Medically cleared for discharge. CBC in 3 days, follow-up with PCP, Dr. Rod Ruano in [address] Hoff for the consult. The impression and plan of care has been dictated as directed. : I performed a history and examination of this patient, discussed the same with the dictator. I agree with the dictator's note ,documented as a scribe. Any additional findings or plans will be noted.
[2019-12-08] MEDS ORDERED: ATORVASTATIN 10 MG TAB PO SCH (21:00)
== END 2019-12-08 13:15 | disposition home health service (06) ==
LOC: OR 05:54 → MERGE 07:30 → 4SSUR 09:04 → OR 12-08 13:15
PROVIDERS: ATTEND Orthopaedic Surgery
DX: M17.11 Unilateral primary osteoarthritis, right knee (principal); I10 Essential (primary) hypertension; E78.5 Hyperlipidemia, unspecified; K21.9 Gastro-esophageal reflux disease without esophagitis; D64.9 Anemia, unspecified; M54.9 Dorsalgia, unspecified; D72.829 Elevated white blood cell count, unspecified; D62 Acute posthemorrhagic anemia; N40.0 Benign prostatic hyperplasia without lower urinary tract symptoms; Z98.890 Other specified postprocedural states; Z87.442 Personal history of urinary calculi; Z98.42 Cataract extraction status, left eye; Z98.41 Cataract extraction status, right eye; Z96.1 Presence of intraocular lens; Z82.49 Family history of ischemic heart disease and other diseases of the circulatory system; Z80.9 Family history of malignant neoplasm, unspecified; Z79.82 Long term (current) use of aspirin; Z79.891 Long term (current) use of opiate analgesic; Z79.1 Long term (current) use of non-steroidal anti-inflammatories (NSAID); Z79.899 Other long term (current) drug therapy; Z88.5 Allergy status to narcotic agent
CPT/HCPCS: 97116; 97110; 97161; 64448; 76942; 85025; 73560; 27447; C1776; C1713; J2250; J0171; J1100; J0690; J2405; J3010; J1885; J1650 ×2; J2795 ×2; J0735; J1170 ×2; 88300

== ENCOUNTER → 2020-06-05 | Outpatient (CLI) | payer MEDICARE, BC ==
--- NOTE | 2020-06-05 10:05 | NM ---
EXAMINATION TYPE: NM hepatobiliary w EF DATE OF EXAM: 06/05/2020 COMPARISON: NONE HISTORY: K 80.00 TECHNIQUE: After the intravenous administration of 4.8 mCi Tc 99m Mebrofenin hepatobiliary scintigrap hy is performed. Immediate images post injection. FINDINGS: There is satisfactory initial accumulation of tracer by the liver. The gallbladder is visualized wit hin 8 minutes. The small bowel activity is noted within 16 minutes. At one hour 8 ounces of oral en sure plus is given to mimic CCK and gallbladder ejection fraction is calculated at 18 %, abnormal low range. There is no scintigraphic evidence of cystic or common bile duct obstruction. IMPRESSION: Abnormal low gallbladder ejection fraction, consider biliary dyskinesia
== END | disposition home or self-care (01) ==
LOC: RADNMMAIN 06:40
PROVIDERS: ATTEND Family Medicine
DX: R93.2 Abnormal findings on diagnostic imaging of liver and biliary tract (principal)
CPT/HCPCS: 78226; A9537

== ENCOUNTER → 2020-06-13 | Outpatient (CLI) | payer MEDICARE, BC ==
[2020-06-13 14:01] LABS: Appearance,Urine Clear (Clear); Bilirubin,Urine Negative (Negative); Blood,Urine Negative (Negative); Color,Urine Yellow; Glucose,Urine (UA) Negative (Negative); Ketones,Urine Negative (Negative); Leukocyte Esterase,Urine Negative (Negative); Nitrite,Urine Negative (Negative); Protein,Urine Negative (Negative); Specific Gravity,Urine 1.013 (1.001-1.035); Urobilinogen,Urine <2.0 mg/dL (<2.0)
[2020-06-13 14:02] LABS: Basophils % (A) 1 %; Eosinophils # (A) 0.2 k/uL (0-0.7); Eosinophils % (A) 2 %; HCT 46.8 % (39.0-53.0); HGB 15.9 gm/dL (13.0-17.5); Lymphocytes # (A) 1.4 k/uL (1.0-4.8); Lymphocytes % (A) 22 %; MCH 29.4 pg (25.0-35.0); MCHC 33.9 g/dL (31.0-37.0); MCV 86.7 fL (80.0-100.0); Mean Platelet Volume 7.8; Monocytes # (A) 0.5 k/uL (0-1.0); Monocytes % (A) 7 %; Neutrophils # (A) 4.4 k/uL (1.3-7.7); Neutrophils % (A) 67 %; Platelet Count 227 k/uL (150-450); WBC 6.6 k/uL (3.8-10.6)
[2020-06-13 14:10] LABS: African American GFR (CKD) >90 (>60 ml/min/1.73 sqM); Anion Gap 8 mmol/L; Blood Urea Nitrogen 12 mg/dL (9-20); Calcium 9.8 mg/dL (8.4-10.2); Carbon Dioxide 27 mmol/L (22-30); Chloride 102 mmol/L (98-107); Glucose 86 mg/dL (74-99); Non-African American GFR(CKD) 80 (>60 ml/min/1.73 sqM); Potassium 4.6 mmol/L (3.5-5.1); Sodium 137 mmol/L (137-145)
== END | disposition home or self-care (01) ==
LOC: LABWHC1 12:21
PROVIDERS: ATTEND Urology
DX: Z01.818 Encounter for other preprocedural examination (principal); N39.0 Urinary tract infection, site not specified; D41.02 Neoplasm of uncertain behavior of left kidney
CPT/HCPCS: 36415; 80048; 81003; 85025; 86850; 86900; 86901; 87086

== ENCOUNTER 2020-06-22 11:37 | Day surgery (SDC) | payer MEDICARE, BC ==
[2020-06-19 15:08] VITALS: BMI 29.5
--- NOTE | 2020-06-22 09:24 | P.HPIHPCON ---
History of Present Illness H&P Date: 06/21/20 Chief Complaint: left sided renal mass This is a 74 yo male hx of 3.8 left sided renal mass. Discussed with him based on review of image is concerning for renal cell carcinoma. The option of robotic radical vs partial nephrectomy was discussed with her. Risk and benefit of each approach were discussed with her. He agreed to proceed with robotic partial nephrectomy. Discussed risk of bleeding, infection, injury to nearby organ, potential of conversion to radical nephrectomy. Discussed potential need for dialysis if radical nephrectomy is performed. I also discussed with her the risk from anesthesia. He understood all the risk and agreed to proceed Consent for Procedure: I have explained the operation/procedure to the patient, including the risks, benefits, side effects, alternative therapies (including not receiving the proposed treatment or service), the likelihood of the patient achieving his/her goals, and potential recuperation problems for the procedure/sedation/analgesia, as well as any blood products, if indicated. I also explained to the patient the risks, benefits and side effects of the alternatives, as well as the risks related to not receiving the proposed procedure, care, treatment, or services. Past Medical History Past Medical History: Hyperlipidemia, Hypertension, Osteoarthritis (OA) Additional Past Medical History / Comment(s): hx. kidney stones, mass left kidney, received both covid vaccines History of Any Multi-Drug Resistant Organisms: None Reported Past Surgical History: Hernia Repair, Orthopedic Surgery, Tonsillectomy Additional Past Surgical History / Comment(s): arthroscopy yeni shoulders,umbilical hernia,left inguinal hernia repair,arthroscopy lt knee x2, yeni cataract surg., right knee replaced in 2019 Past Anesthesia/Blood Transfusion Reactions: No Reported Reaction Smoking Status: Never smoker - Past Family History Father Family Medical History: Cancer, Deep Vein Thrombosis (DVT) Mother Family Medical History: Cancer Medications and Allergies Home Medications Medication Instructions Recorded Confirmed Type lisinopriL [Lisinopril] 20 mg PO QAM 01/08/15 06/19/20 History Simvastatin [Zocor] 20 mg PO HS 12/06/19 06/19/20 History Allergies Allergy/AdvReac Type Severity Reaction Status Date / Time hydrocodone bitartrate AdvReac prolonged Verified 06/19/20 14:34 [From [place]] hiccups Surgical - Exam - General well developed, well nourished, no distress, no pain - Respiratory normal expansion, normal respiratory effort Assessment and Plan Assessment: 74 yo male with hx of left sided renal mass -OR for robotic assisted laproscopic partial nephrectomy on left
[~2020-06-22 11:37] MED LIST changes: -ACETAMINOPHEN TAB 500 MG TAB PO ONE; +DEXAMETHASONE SOD PHOSPHATE 4 MG/ML 1 ML VIAL IV ONE; -MELOXICAM 7.5 MG TAB PO ONE; +MIDAZOLAM 2 MG/2 ML VIAL IV PRN; +ONDANSETRON 4 MG/2 ML VIAL IVP ONE; -TRANEXAMIC ACID 1,000 MG in SODIUM CHLORIDE 0.9% 100 ML IVPB ONE; +fentaNYL (PF) 50 MCG/ML 2 ML AMP IV PRN
[2020-06-22] MEDS ORDERED: LIDOCAINE 1% (10MG/ML) FOR IV START INTRADERMA ONE (12:27)
[2020-06-22] MEDS: LACTATED RINGERS 1,000 ML IV SCH ×2 (12:28→12:41)
[2020-06-22] MEDS ORDERED: fentaNYL (PF) 50 MCG/ML 2 ML AMP IV ONE (13:01)
[2020-06-22] MEDS ORDERED: MIDAZOLAM 2 MG/2 ML VIAL IV ONE (13:01)
--- NOTE | 2020-06-22 13:18 | P.ANPRN ---
Procedure Note - Anesthesia - Nerve Block Performed Left Erector Spinae Single Time Out Performed: Yes (1300) Date of Procedure: 06/22/20 Procedure Start Time: 13:01 Procedure Stop Time: 13:11 Location of Patient: PreOp Indication: Acute Post-Operative Pain, Analgesia, Requested by Surgeon Specifically requested for management of pain by : Jorg eLuis Reed Sedation Type: Sedate with meaningful contact maintained Preparation: Sterile Prep Position: Prone Needle Types: Pajunk Needle Gauge: 20 Ultrasound used to visualize needle placement: Yes Ultrasound used to observe medication spread: Yes Injectate: 0.5% Ropivacaine (see comment for volume) (20 mL) Blood Aspirated: No Pain Paresthesia on Injection Noted: No Resistance on Injection: Normal Image Stored and Saved: Yes Events: Uneventful and Well Tolerated
[2020-06-22] MEDS ORDERED: KETOROLAC 15 MG/ML 1 ML VIAL ONE (13:26)
[2020-06-22] MEDS ORDERED: ROPIVACAINE 5 MG/ML 30 ML VIAL ONE (13:26)
[2020-06-22] MEDS ORDERED: NEOSTIGMINE 1 MG/ML 10 ML VIAL ONE (13:26)
[2020-06-22] MEDS ORDERED: fentaNYL (PF) 50 MCG/ML 2 ML AMP ONE (13:26)
[2020-06-22] MEDS ORDERED: ROCURONIUM 10 MG/ML (5 ML VIAL) IV ONE (13:26)
[2020-06-22] MEDS ORDERED: PROPOFOL 10 MG/ML 20 ML VIAL IV ONE (13:26)
[2020-06-22] MEDS ORDERED: GLYCOPYRROLATE 0.2 MG/ML 2 ML VIAL ONE (13:26)
[2020-06-22] MEDS ORDERED: MIDAZOLAM 2 MG/2 ML VIAL ONE (13:26)
[2020-06-22] MEDS ORDERED: HYDROmorphone (PF) 1 MG/ML ONE (13:26)
[2020-06-22] MEDS ORDERED: LIDOCAINE 1% INJ 10MG/ML (20 ML MDV) ONE (13:26)
[2020-06-22] MEDS ORDERED: BUPIVACAINE (PF) 0.25% 30 ML VIAL SQ ONE ×2 (14:04)
[2020-06-22] MEDS ORDERED: LACTATED RINGERS 1,000 ML IV ONE (16:15)
[2020-06-22] MEDS ORDERED: HYDROmorphone 1 MG/ML 1 ML SYRINGE IVP PRN (16:42)
[2020-06-22] MEDS ORDERED: methocarbamoL 750 MG TAB PO PRN (16:44)
--- NOTE | 2020-06-22 16:51 | P.OP ---
Date of Procedure: 06/22/20 Preoperative Diagnosis: Left renal mass Postoperative Diagnosis: Same Procedure(s) Performed: Robotic-assisted upper laproscopic partial nephrectomy Implants: None Anesthesia: RAJATA Surgeon: Jorge Luis Reed Motion Study Analyst #1: Joel Navas Estimated Blood Loss (ml): 100 Pathology: other (left renal mass) Condition: stable Disposition: PACU Indications for Procedure: This is a 74 yo male hx of 3.8 left sided renal mass. Discussed with him based on review of image is concerning for renal cell carcinoma. The option of robotic radical vs partial nephrectomy was discussed with her. Risk and benefit of each approach were discussed with her. He agreed to proceed with robotic partial nephrectomy. Discussed risk of bleeding, infection, injury to nearby organ, potential of conversion to radical nephrectomy. Discussed potential need for dialysis if radical nephrectomy is performed. I also discussed with her the risk from anesthesia. He understood all the risk and agreed to proceed Operative Findings: Left lower pole renal mass Description of Procedure: The patient was taken to the operating room . General anesthesia was induced. He was prepped and draped in sterile fashion, and was placed in modified flank position . All pressure points were padded. The abdominal insufflation was achieved with the Veress needle. A 8 mm camera port was placed. Robotic trocars and insurance sales assistant ports were placed under direct vision. . The robot was docked into place. The colon was mobilized medially by incising along the white line of Toldt. The spleen and the pancreas were mobilized away from the kidney. Next the ureter was retracted anteriorly off the psoas muscle. Dissection proceeded cranially towards the renal hilum. The renal artery and vein were visualized and dissected in preparation for clamping. There was two renal arteries. Next the kidney was defated and tumor was exposed. Next both arteries were clamped using bulldogs. The tumor was excised sharply, The defect was closed in 2 layers using 3-0V lock for the deeper tissue, and 2-0V lock for the capsular closure using the Sliding clip technique was performed. The clamps were removed, total clamp time was 27 minutes. Hemostatic agents were placed on the surgical bed. A 10-Amharic flat CHE[place]ENNE was placed through the left lower quadrant, through the robotic port. Fascia was closed with #1 PDS in figure of 8 fashion . Skin was closed with subcuticular sutures and dermabond. The patient was awoken from general anesthesia in stable condition. Please refer to the final pathology report for final diagnosis
[2020-06-22] MEDS: ATORVASTATIN 10 MG TAB PO SCH (20:08)
[2020-06-22] MEDS: D5-0.45% NACL WITH KCL 20MEQ/L 1,000 ML IV SCH (20:08)
[2020-06-22 21:25] LABS: Basophils % (A) 0 %; Eosinophils # (A) 0.1 k/uL (0-0.7); Eosinophils % (A) 0 %; HCT 46.2 % (39.0-53.0); HGB 15.3 gm/dL (13.0-17.5); Lymphocytes # (A) 0.4 k/uL (1.0-4.8); Lymphocytes % (A) 3 %; MCH 29.2 pg (25.0-35.0); MCHC 33.2 g/dL (31.0-37.0); MCV 87.9 fL (80.0-100.0); Mean Platelet Volume 8.1; Monocytes # (A) 0.3 k/uL (0-1.0); Monocytes % (A) 3 %; Neutrophils # (A) 10.9 k/uL (1.3-7.7); Neutrophils % (A) 93 %; Platelet Count 171 k/uL (150-450); RBC 5.26 m/uL (4.30-5.90); RDW 13.1 % (11.5-15.5); WBC 11.8 k/uL (3.8-10.6)
[2020-06-23] MEDS: D5-0.45% NACL WITH KCL 20MEQ/L 1,000 ML IV SCH ×3 (02:28→10:52)
[2020-06-23] MEDS: traMADol 50 MG TAB PO PRN ×3 (03:44→18:34)
[2020-06-23 05:35] LABS: HCT 42.9 % (39.0-53.0); HGB 13.7 gm/dL (13.0-17.5); MCH 28.1 pg (25.0-35.0); MCHC 31.8 g/dL (31.0-37.0); MCV 88.1 fL (80.0-100.0); Mean Platelet Volume 7.9; Platelet Count 195 k/uL (150-450); RBC 4.87 m/uL (4.30-5.90); RDW 13.5 % (11.5-15.5); WBC 12.5 k/uL (3.8-10.6)
[2020-06-23] MEDS: lisinopriL 20 MG TAB PO SCH (08:06)
[2020-06-23 10:07] LABS: African American GFR (CKD) 76.2 (60.0-200.0); Anion Gap 9.9 mmol/L (4.00-12.00); BUN/Creat Ratio 15.45 Ratio (12.00-20.00); Calcium 8.2 mg/dL (8.7-10.3); Carbon Dioxide 22.1 mmol/L (21.6-31.8); Non-African American GFR(CKD) 65.8 (60.0-200.0); Potassium 5.5 mmol/L (3.5-5.5)
--- NOTE | 2020-06-23 12:38 | P.PN ---
Progress Note - Text Progress Note Date: 06/23/20 POD #1 S/P Partial nephrectomy doing well, NAD, pain controlled, has been up out of bed. HGB stable. Abdomen: soft, non tender CHEYENNE: serosing A/P S/P robotic partial nephrectomy, doing well -Ambulate -D/C avila -Trend CBC -Potential discharge home tomorrow.
[2020-06-23 17:55] LABS: Basophils % (A) 0 %; Eosinophils # (A) 0.2 k/uL (0-0.7); Eosinophils % (A) 2 %; HCT 42.8 % (39.0-53.0); HGB 14.4 gm/dL (13.0-17.5); Lymphocytes # (A) 0.9 k/uL (1.0-4.8); Lymphocytes % (A) 7 %; MCH 29.3 pg (25.0-35.0); MCHC 33.6 g/dL (31.0-37.0); MCV 87.2 fL (80.0-100.0); Mean Platelet Volume 8.1; Monocytes # (A) 0.9 k/uL (0-1.0); Monocytes % (A) 7 %; Neutrophils # (A) 11.2 k/uL (1.3-7.7); Neutrophils % (A) 84 %; Platelet Count 188 k/uL (150-450); RBC 4.91 m/uL (4.30-5.90); RDW 13.3 % (11.5-15.5); WBC 13.4 k/uL (3.8-10.6)
[2020-06-23] MEDS: SENNOSIDES 8.6 MG TAB PO SCH (18:35)
[2020-06-23] MEDS ORDERED: ONDANSETRON 4 MG/2 ML VIAL IVP PRN (20:03)
[2020-06-23] MEDS: ATORVASTATIN 10 MG TAB PO SCH (20:04)
[2020-06-23] MEDS: HEPARIN SODIUM,PORCINE/PF 5,000 UNIT/0.5 ML SYRINGE SQ SCH (20:04)
[2020-06-24] MEDS: D5-0.45% NACL WITH KCL 20MEQ/L 1,000 ML IV SCH ×2 (03:45→11:12)
[2020-06-24] MEDS: LACTATED RINGERS 1,000 ML IV SCH (06:24)
[2020-06-24 06:32] LABS: Basophils % (A) 0 %; Eosinophils # (A) 0.2 k/uL (0-0.7); Eosinophils % (A) 2 %; HCT 40.2 % (39.0-53.0); HGB 13.5 gm/dL (13.0-17.5); Lymphocytes # (A) 0.8 k/uL (1.0-4.8); Lymphocytes % (A) 6 %; MCH 29.3 pg (25.0-35.0); MCHC 33.6 g/dL (31.0-37.0); MCV 87.2 fL (80.0-100.0); Mean Platelet Volume 8.1; Monocytes # (A) 0.8 k/uL (0-1.0); Monocytes % (A) 6 %; Neutrophils # (A) 10.2 k/uL (1.3-7.7); Neutrophils % (A) 85 %; Platelet Count 177 k/uL (150-450); RBC 4.61 m/uL (4.30-5.90); RDW 13.2 % (11.5-15.5)
[2020-06-24 08:25] LABS: ALT 19 U/L (4-49); AST 32 U/L (17-59); African American GFR (CKD) 78 (>60 ml/min/1.73 sqM); Albumin/Globulin Ratio 1.3; Alkaline Phosphatase 72 U/L (38-126); Anion Gap 2 mmol/L; Blood Urea Nitrogen 15 mg/dL (9-20); Calcium 8.3 mg/dL (8.4-10.2); Carbon Dioxide 26 mmol/L (22-30); Chloride 104 mmol/L (98-107); Globulin 2.4 g/dL; Glucose 120 mg/dL (74-99); Non-African American GFR(CKD) 67 (>60 ml/min/1.73 sqM); Potassium 4.9 mmol/L (3.5-5.1); Sodium 132 mmol/L (137-145); Total Bilirubin 1.2 mg/dL (0.2-1.3); Total Protein 5.4 g/dL (6.3-8.2)
[2020-06-24] MEDS: HEPARIN SODIUM,PORCINE/PF 5,000 UNIT/0.5 ML SYRINGE SQ SCH (08:29)
[2020-06-24] MEDS: lisinopriL 20 MG TAB PO SCH (08:29)
[2020-06-24] MEDS: traMADol 50 MG TAB PO PRN (08:30)
[2020-06-24] MEDS: SENNOSIDES 8.6 MG TAB PO SCH (08:31)
--- NOTE | 2020-06-24 12:48 | P.DS ---
Providers Attending physician: Jorge Luis Reed MD Primary care physician: [facility] Course: Mr Ayala is a 74 yo male with hx of left sided renal mass, he underwent robotic assisted laproscopic partial nephrectomy on 06/22. Please see Op note dated 06/22 for full surgery details. He was admitted to the floor post operatively. He did well in the post operative period. His hgb remained stable. His Phillips catheter and CHEYENNE drained was removed on POD #2. He was discharged home on POD #2. At time of discharge he was tolerating a diet, ambulating and pain was well controlled Plan - Discharge Summary Discharge Rx Participant: Yes New Discharge Prescriptions: New RX: Ibuprofen 600 mg PO Q6H PRN #20 tab PRN Reason: Pain traMADol HCL [Ultram] 50 mg PO Q6HR PRN 3 Days #12 tab PRN Reason: Pain No Action RX: lisinopriL [Lisinopril] 20 mg PO QAM RX: Simvastatin [Zocor] 20 mg PO HS Discharge Medication List RX: lisinopriL [Lisinopril] 20 mg PO QAM 01/08/15 [History] RX: Simvastatin [Zocor] 20 mg PO HS 12/06/19 [History] RX: Ibuprofen 600 mg PO Q6H PRN #20 tab 06/22/20 [Rx] traMADol HCL [Ultram] 50 mg PO Q6HR PRN 3 Days #12 tab 06/22/20 [Rx] Patient Instructions/Handouts: Ibuprofen (By mouth), Tramadol (By mouth), Nephrectomy (DC) Activity/Diet/Wound Care/Special Instructions: No heavy lifting or straining for 4 weeks You may shower but no baths Diet as tolerated
[2020-06-24 14:10] VITALS: BP 125/66; PULSE 58; RESP 16; TEMP 98.7
== END 2020-06-24 14:28 | disposition home or self-care (01) ==
LOC: OR 11:37 → 5NMEDONC 16:55 → OR 06-24 14:28
PROVIDERS: ATTEND Urology
DX: C64.2 Malignant neoplasm of left kidney, except renal pelvis (principal); E78.5 Hyperlipidemia, unspecified; I10 Essential (primary) hypertension; Z20.822 Contact with and (suspected) exposure to COVID-19; M19.90 Unspecified osteoarthritis, unspecified site; Z87.442 Personal history of urinary calculi; Z98.890 Other specified postprocedural states; Z90.89 Acquired absence of other organs; Z98.42 Cataract extraction status, left eye; Z98.41 Cataract extraction status, right eye; Z96.651 Presence of right artificial knee joint; Z79.899 Other long term (current) drug therapy; Z88.5 Allergy status to narcotic agent
CPT/HCPCS: 64999; 76942; 80053; 80048; 85025 ×3; 85027; 88307; 87635; 50543; C1762 ×2; J2250; J1100; J2710; J0690; J2405 ×2; J2001; J3010; J1170; J2795; J1885; J2704; J1644 ×2; 36415; 86850; 86900; 86901

== ENCOUNTER → 2020-11-02 | Outpatient (CLI) | payer MEDICARE, BC ==
--- NOTE | 2020-11-02 11:31 | XR ---
EXAMINATION TYPE: XR chest 2V DATE OF EXAM: 11/02/2020 COMPARISON: NONE HISTORY: Shortness of breath TECHNIQUE: Frontal and lateral views of the chest are obtained. FINDINGS: Scattered senescent parenchymal changes noted. Hyperinflation compatible with COPD. No evidence for infiltrate. No evidence for atelectasis. Heart size is stable. Mediastinal structures are stable and grossly unremarkable. No evidence for hilar prominence. Degenerative changes dorsal spine. IMPRESSION: 1. No evidence for acute pulmonary disease.
== END | disposition home or self-care (01) ==
LOC: RADXRMAIN 10:40
PROVIDERS: ATTEND Urology
DX: R06.02 Shortness of breath (principal)
CPT/HCPCS: 71046

== ENCOUNTER → 2020-11-12 | Outpatient (CLI) | payer MEDICARE, BC ==
[2020-11-12 14:57] LABS: African American GFR (CKD) >90 (>60 ml/min/1.73 sqM); Blood Urea Nitrogen 15 mg/dL (9-20); Non-African American GFR(CKD) 82 (>60 ml/min/1.73 sqM)
--- NOTE | 2020-11-12 17:44 | CT ---
EXAMINATION TYPE: CT abdomen wo/w con DATE OF EXAM: 11/12/2020 COMPARISON: NONE HISTORY: 75-year-old male C64.4, renal cancer. TECHNIQUE: Contiguous axial scanning of the abdomen before and after administration of 100 ml Isovue 300 IV contrast. Delayed images through the kidneys and coronal/sagittal reconstructions performed. CT DLP: 1957 mGycm Automated exposure control for dose reduction was used. FINDINGS: Heart normal size without pericardial effusion. Three-vessel coronary artery calcifications are prese nt. 5 mm subpleural pulmonary nodule periphery of the right lower lobe, axial image 2. 7 mm right middle lobe pulmonary nodule, axial image 10. A few scattered nonspecific hypodensities within the liver, approximately 6 hypodensities, largest me asuring 1.8 cm, likely cysts. Portal venous system is patent. No biliary ductal dilatation. Gallbladder, adrenal glands, right kidney, spleen, and pancreas within normal limits. Left kidney demonstrates postsurgical change along the posterior lower pole with thin linear calcific ations and some adjacent mild fat stranding. No discrete mass is identified. No dilated small bowel, free fluid, or free air. No mesenteric or retroperitoneal lymphadenopathy. Mi ld to moderate stool burden. No pericolonic inflammatory change. Bones: Trabecular thickening of the right iliac wing, possible Paget's disease. Hypertrophic facet ar thropathy mid to lower lumbar spine. No osseous destructive process. Scattered endplate Schmorl's nod es lower thoracic spine and upper to mid lumbar spine. IMPRESSION: 1. A COUPLE NONSPECIFIC RIGHT BASILAR PULMONARY NODULES MEASURING 5 MM AND 7 MM. METASTATIC DISEASE S HOULD BE EXCLUDED EITHER BY COMPARING WITH ANY AVAILABLE OUTSIDE PRIORS OR SHORT INTERVAL FOLLOW-UP C T CHEST. 2. POSTSURGICAL CHANGE POSTERIOR LOWER POLE LEFT KIDNEY. NO EVIDENCE FOR LOCOREGIONAL RECURRENCE OR O THERWISE ANY METASTATIC DISEASE IN THE ABDOMEN. 3. DIFFUSE TRABECULAR THICKENING OF THE RIGHT ILIAC BONE, POSSIBLE PAGET'S DISEASE. CLINICALLY CORREL ATE.
== END | disposition home or self-care (01) ==
LOC: RADCTMAIN 14:13
PROVIDERS: ATTEND Urology
DX: N28.89 Other specified disorders of kidney and ureter (principal); Z85.528 Personal history of other malignant neoplasm of kidney
CPT/HCPCS: 82565; 84520; 74170; 36415; Q9967

== ENCOUNTER → 2020-12-27 | Outpatient (CLI) | payer MEDICARE, BC ==
--- NOTE | 2020-12-27 11:46 | XR ---
EXAMINATION TYPE: XR Hip RT and AP Pelvis DATE OF EXAM: 12/27/2020 COMPARISON: CT abdomen November 12, 2020 HISTORY: Paget's disease per order. Recent abnormal CT TECHNIQUE: A single AP view of the pelvis is obtained. Two views of the right hip are obtained. FINDINGS: There is confirmation of asymmetric right sided acetabular thickening in the iliac bone adj acent to the sacroiliac joint which was present on last 2 CT studies. This appears to involve the ri ght iliac bone fairly diffusely into the acetabulum with similar findings of trabecular expansion. No definitive additional areas of involvement. Scattered bilateral pelvic phleboliths. Mild axial joint space loss in both hips. Right hip shows likely extension into the inferior pelvic ramus. No femoral involvement definitively seen. IMPRESSION: As above. Findings are suspicious for Paget's disease right pelvis as detailed above. Cor relate clinically. Whole body bone scan can be performed to evaluate this along with possible additio nal lesions.
== END | disposition home or self-care (01) ==
LOC: RADXRMAIN 11:18
PROVIDERS: ATTEND Family Medicine
DX: M88.9 Osteitis deformans of unspecified bone (principal)
CPT/HCPCS: 73502

== ENCOUNTER → 2021-02-06 | Outpatient (CLI) | payer MEDICARE, BC ==
--- NOTE | 2021-02-06 15:28 | NM ---
EXAMINATION TYPE: NM bone scan whole body DATE OF EXAM: 02/06/2021 COMPARISON: CT abdomen November 12, 2020 HISTORY: Renal cell cancer Delayed whole-body scanning was performed following the injection of 22.8 mCi Tc 99m MDP. Images acq uired 3.5 hours post injection. FINDINGS: Suspicious increase radiotracer uptake right pelvis appears to corresponding to expansile loculated l esion involving iliac bone including the acetabulum extending into the pelvic rami. Ltiu-bj-emyazeyx uptake both knee joints felt to reflect product of degenerative change. Lucency from prosthesis right knee joint noted. Increased uptake right sternoclavicular joint favors degenerative change. Subtle increased uptake rig ht frontal calvarium tiny round subcentimeter lesion. Consider correlating with CT exam. No additiona l suspicious increased uptake to suggest metastatic disease. IMPRESSION: Above findings suspicious for Paget's disease. Correlate clinically and with lab values
== END | disposition home or self-care (01) ==
LOC: RADNMMAIN 10:15
PROVIDERS: ATTEND Family Medicine
DX: C64.9 Malignant neoplasm of unspecified kidney, except renal pelvis (principal)
CPT/HCPCS: 78306; A9503

== ENCOUNTER → 2021-06-08 | Outpatient (CLI) | payer MEDICARE, BC | END | disposition home or self-care (01) | LOC: LABWHC1 11:09 | PROVIDERS: ATTEND Internal Medicine Interventional Cardiology | DX: M88.89 Osteitis deformans of multiple sites (principal) | CPT/HCPCS: 36415; 84075 ==

== ENCOUNTER → 2021-06-24 | Outpatient (CLI) | payer MEDICARE, BC ==
--- NOTE | 2021-06-24 10:51 | CT ---
EXAMINATION TYPE: CT chest abdomen w con DATE OF EXAM: 06/24/2021 COMPARISON: CT abdomen 11/12/2020, bone scan 02/06/2021 HISTORY: Renal cancer CT DLP: 1482.5 mGycm. Automated Exposure Control for Dose Reduction was Utilized. CONTRAST: CT scan of the thorax, abdomen and pelvis is performed with IV Contrast, patient injected with 100 mL of Isovue 300. FINDINGS: LUNGS: The lungs are grossly clear, there is no concerning parenchymal mass or nodule identified, nod ules previously seen in the right lung base on prior exam are stable and likely benign. There is no pleural effusion or pneumothorax seen. The tracheobronchial tree is patent. MEDIASTINUM: There are no greater than 1 cm hilar or mediastinal lymph nodes. No pericardial effusi on is seen. OTHER: Suspect a small hiatal hernia is present. There are dense coronary artery calcifications. LIVER/GB: Cystic foci within the liver are again noted. PANCREAS: No significant abnormality is seen. SPLEEN: No significant abnormality is seen. ADRENALS: No significant abnormality is seen. KIDNEYS: Retroaortic left renal vein is again noted. Postop changes to the left kidney are stable.. Large amount of retained fecal debris is noted. No significant abnormality is seen. GENITAL ORGANS: No gross abnormality seen. LYMPH NODES: No greater than 1cm abdominal or pelvic lymph nodes are appreciated. OSSEOUS STRUCTURES: No significant abnormality is seen. OTHER: No significant additional abnormality is seen. IMPRESSION: No evident recurrence
== END | disposition home or self-care (01) ==
LOC: RADCTMAIN 07:54
PROVIDERS: ATTEND Urology
DX: C64.9 Malignant neoplasm of unspecified kidney, except renal pelvis (principal)
CPT/HCPCS: 36415; 71260; 74160; 82565; 84520

== ENCOUNTER → 2022-06-18 | Outpatient (CLI) | payer MEDICARE, BC ==
--- NOTE | 2022-06-18 11:50 | CT ---
EXAMINATION TYPE: CT chest abdomen w con DATE OF EXAM: 06/18/2022 COMPARISON: Most recent CT 06/24/2021 and older studies. HISTORY: f/u left side partial nephrectomy CT DLP: 1818 mGycm. Automated Exposure Control for Dose Reduction was Utilized. CONTRAST: CT scan of the thorax and abdomen are performed without oral and with IV Contrast, patient injected w ith 100 mL of Isovue 300. FINDINGS: LUNGS: Elevated right hemidiaphragm redemonstrated. Persistent right basilar atelectasis and/or scarr ing. Stable 6 mm peripheral right middle lobe nodule axial image 220 series 4. An azygos lobe/fissure is redemonstrated. Left lung remains clear. MEDIASTINUM: There are no greater than 1 cm hilar or mediastinal lymph nodes. No cardiomegaly or pe ricardial effusion is seen. Fairly severe coronary artery calcification is again seen. LIVER/GB: A few simple appearing thin-walled cyst within the right hepatic lobe are redemonstrated. PANCREAS: Mild fat replaced atrophy again seen. SPLEEN: Nonspecific subcentimeter hypodense lesion posteriorly axial image 92 series 3 is too small t o further characterize for presumed benign. ADRENALS: No significant abnormality is seen. KIDNEYS: Symmetric uptake and excretion without hydronephrosis seen bilaterally. Posttreatment change along the posterior lower pole left kidney is redemonstrated. Retroaortic left renal vein which is n ormal variant redemonstrated. BOWEL: No significant abnormality is seen. LYMPH NODES: No greater than 1cm abdominal lymph nodes are appreciated. OSSEOUS STRUCTURES:. There is S-shaped scoliosis. OTHER: Vertical scar near the umbilicus redemonstrated. IMPRESSION: No suspicious new or enlarging mass or adenopathy to suggest neoplastic recurrence.
== END | disposition home or self-care (01) ==
LOC: RADCTMAIN 09:23
PROVIDERS: ATTEND Urology
DX: C64.2 Malignant neoplasm of left kidney, except renal pelvis (principal)
CPT/HCPCS: 82565; 84520; 71260; 74160; 36415; Q9967

== ENCOUNTER 2023-06-15 11:19 | Day surgery (SDC) | payer MEDICARE, BC ==
[~2023-06-15 11:19] MED LIST changes: -DEXAMETHASONE SOD PHOSPHATE 4 MG/ML 1 ML VIAL IV ONE; +LIDOCAINE 1% (10MG/ML) FOR IV START INTRADERMA PRN; -MIDAZOLAM 2 MG/2 ML VIAL IV PRN; -ONDANSETRON 4 MG/2 ML VIAL IVP ONE; -fentaNYL (PF) 50 MCG/ML 2 ML AMP IV PRN
[2023-06-15] MEDS: LACTATED RINGERS 1,000 ML IV SCH (12:06)
[2023-06-15] MEDS ORDERED: PROPOFOL 10 MG/ML 20 ML VIAL IV ONE (12:27)
--- NOTE | 2023-06-15 12:31 | P.GSHP ---
History of Present Illness H&P Date: 06/15/23 Chief Complaint: screening colonoscopy this is a 77-year-old male who presents today for screening colonoscopy. Patient denies a significant GI complaints. Past Medical History Past Medical History: GERD/Reflux, Hyperlipidemia, Hypertension, Osteoarthritis (OA) Additional Past Medical History / Comment(s): Routine colonoscopy. hx. kidney stones, was using eye drops for pressure but none needed since cataract surgery History of Any Multi-Drug Resistant Organisms: None Reported Past Surgical History: Hernia Repair, Joint Replacement, Orthopedic Surgery, Tonsillectomy Additional Past Surgical History / Comment(s): arthroscopy yeni shoulders,umbilical hernia,left inguinal hernia repair,arthroscopy lt knee x2, R total knee, yeni cataract surg, colonoscopies. Past Anesthesia/Blood Transfusion Reactions: No Reported Reaction Smoking Status: Never smoker - Past Family History Father Family Medical History: Cancer Mother Family Medical History: Cancer Medications and Allergies Home Medications Medication Instructions Recorded Confirmed Type lisinopriL [Lisinopril] 20 mg PO QAM 01/08/15 06/15/23 History Simvastatin [Zocor] 20 mg PO HS 12/06/19 06/15/23 History Ibuprofen 600 mg PO Q6H PRN #20 tab 06/22/20 06/15/23 Rx Alendronate Sodium 70 mg PO MO 06/12/23 06/15/23 History Calcium Carbonate [Calcium] 600 mg PO QAM 06/12/23 06/15/23 History Metoprolol Succinate [Metoprolol 12.5 mg PO QAM 06/12/23 06/15/23 History Succinate ER] Allergies Allergy/AdvReac Type Severity Reaction Status Date / Time hydrocodone bitartrate AdvReac prolonged Verified 06/15/23 11:38 [From [place]] hiccups Surgical - Exam Vital Signs Temp Pulse Resp BP Pulse Ox 97.1 F L 51 L 16 144/69 96 06/15/23 11:50 06/15/23 11:50 06/15/23 11:50 06/15/23 11:50 06/15/23 11:50 - General well developed, well nourished, no distress - Eyes PERRL - ENT normal pinna - Neck no masses - Respiratory normal expansion - Cardiovascular Rhythm: regular - Abdomen Abdomen: soft, non tender Assessment and Plan Assessment: we'll perform screening colonoscopy.
--- NOTE | 2023-06-15 12:47 | P.OP ---
Date of Procedure: 06/15/23 Preoperative Diagnosis: screening colonoscopy Postoperative Diagnosis: diverticulosis Procedure(s) Performed: colonoscopy Anesthesia: MAC Surgeon: Shaheen Esparza Pathology: none sent Condition: stable Disposition: PACU Description of Procedure: the patient's placed on the endoscopy table in the lateral position. He received IV sedation. Digital rectal exam was performed. This revealed no eabnormalities. The possible colonoscope was then placed patient anus and passed throughout the entire colon. The ileocecal valve wvisualized.. The cecum, ascending and transverse colon appeared normal. In the descending and sigmoid: There is extensive diverticular disease. Scope summer back the rectum and this appeared normal. Scope was then withdrawn for patient.
[2023-06-15 12:54] VITALS: RESP 16; TEMP 97.1
[2023-06-15 13:41] VITALS: BP 126/75; PULSE 62
== END 2023-06-15 13:30 | disposition home or self-care (01) ==
LOC: ORWHC2ENDO 11:19
PROVIDERS: ATTEND Surgery
DX: Z12.11 Encounter for screening for malignant neoplasm of colon (principal); K57.30 Diverticulosis of large intestine without perforation or abscess without bleeding; I10 Essential (primary) hypertension; E78.5 Hyperlipidemia, unspecified; K21.9 Gastro-esophageal reflux disease without esophagitis; M19.90 Unspecified osteoarthritis, unspecified site; Z87.442 Personal history of urinary calculi; Z90.89 Acquired absence of other organs; Z98.890 Other specified postprocedural states; Z79.899 Other long term (current) drug therapy; Z88.5 Allergy status to narcotic agent; Z95.5 Presence of coronary angioplasty implant and graft; Z85.53 Personal history of malignant neoplasm of renal pelvis; Z96.651 Presence of right artificial knee joint
CPT/HCPCS: J2704; G0121

== ENCOUNTER → 2023-07-22 | Outpatient (CLI) | payer MEDICARE, BC ==
--- NOTE | 2023-07-22 11:08 | XR ---
EXAMINATION TYPE: XR chest 2V DATE OF EXAM: 07/22/2023 COMPARISON: 11/02/2020 HISTORY: 77-year-old male R0 729, chest pain, shortness of breath, pleurisy. TECHNIQUE: Frontal and lateral views FINDINGS: Heart normal size. Low lung volume is cardiovascular markings and patchy strandy left basilar opacity . Additional small left pleural effusion noted. IMPRESSION: Hypoventilatory changes along with a small left effusion and adjacent atelectasis and/or consolidatio n. Correlate as to etiology.
== END | disposition home or self-care (01) ==
LOC: RADXRMAIN 10:34
PROVIDERS: ATTEND Family Medicine
DX: J90 Pleural effusion, not elsewhere classified (principal); J98.11 Atelectasis; R07.89 Other chest pain
CPT/HCPCS: 71046

== ENCOUNTER 2023-08-14 16:46 | Inpatient (IN) | payer MEDICARE, BC ==
--- NOTE | 2023-08-14 17:13 | ED ---
General Adult HPI - General Chief complaint: Recheck/Abnormal Lab/Rx Stated complaint: blood clot in lung, sent by Time Seen by Provider: 08/14/23 16:52 Source: patient, RN notes reviewed, old records reviewed Mode of arrival: ambulatory Limitations: no limitations - History of Present Illness Initial comments: 77-year-old male presenting for evaluation of abnormal outpatient CT. Patient was found to have pulmonary embolism on routine outpatient CT performed by his urologist. Patient is 3 years status post nephrectomy and he had undergone repeat imaging today for surveillance and was noted to have a filling defect consistent with pulmonary embolism. Patient has had pleuritic chest pain and mild dyspnea for the past 3 weeks. Anticoagulation. No leg pain or swelling. - Related Data Home Medications Medication Instructions Recorded Confirmed lisinopriL [Lisinopril] 20 mg PO QAM 01/08/15 06/15/23 Simvastatin [Zocor] 20 mg PO HS 12/06/19 06/15/23 Alendronate Sodium 70 mg PO MO 06/12/23 06/15/23 Calcium Carbonate [Calcium] 600 mg PO QAM 06/12/23 06/15/23 Metoprolol Succinate [Metoprolol 12.5 mg PO QAM 06/12/23 06/15/23 Succinate ER] Previous Rx's Medication Instructions Recorded Ibuprofen 600 mg PO Q6H PRN #20 tab 06/22/20 Allergies Allergy/AdvReac Type Severity Reaction Status Date / Time hydrocodone bitartrate AdvReac prolonged Verified 08/14/23 16:50 [From [place]] hiccups Review of Systems ROS Statement: Those systems with pertinent positive or pertinent negative responses have been documented in the HPI. ROS Other: All systems not noted in ROS Statement are negative. Past Medical History Past Medical History: GERD/Reflux, Hyperlipidemia, Hypertension, Osteoarthritis (OA) Additional Past Medical History / Comment(s): Routine colonoscopy. hx. kidney stones, was using eye drops for pressure but none needed since cataract surgery History of Any Multi-Drug Resistant Organisms: None Reported Past Surgical History: Hernia Repair, Joint Replacement, Orthopedic Surgery, Tonsillectomy Additional Past Surgical History / Comment(s): arthroscopy yeni shoulders,umbilical hernia,left inguinal hernia repair,arthroscopy lt knee x2, R total knee, yeni cataract surg, colonoscopies. Past Anesthesia/Blood Transfusion Reactions: No Reported Reaction Past Psychological History: No Psychological Hx Reported Smoking Status: Never smoker Past Alcohol Use History: None Reported Past Drug Use History: None Reported - Past Family History Father Family Medical History: Cancer Mother Family Medical History: Cancer General Exam Limitations: no limitations General appearance: alert, in no apparent distress Head exam: Present: atraumatic, normocephalic Eye exam: Present: normal appearance, PERRL ENT exam: Present: normal exam Neck exam: Present: normal inspection. Absent: tenderness, meningismus Respiratory exam: Present: normal lung sounds bilaterally. Absent: respiratory distress, wheezes Cardiovascular Exam: Present: regular rate, normal rhythm GI/Abdominal exam: Present: soft. Absent: distended, tenderness Extremities exam: Present: normal inspection, normal capillary refill. Absent: calf tenderness Neurological exam: Present: alert, oriented X3, CN II-XII intact. Absent: motor sensory deficit Psychiatric exam: Present: normal affect Skin exam: Present: warm, dry, intact Course Vital Signs 08/14/23 08/14/23 16:48 17:00 Temperature 97.8 F Pulse Rate 61 61 Respiratory 22 16 Rate Blood Pressure 191/96 186/99 O2 Sat by Pulse 96 97 Oximetry Medical Decision Making - Medical Decision Making Was pt. sent in by a medical professional or institution (, PA, GAS LINE REPAIRER, urgent care, hospital, or correction...) When possible be specific @Sent in by physician for diagnosis of pulmonary embolism. Did you speak to anyone other than the patient for history (EMS, parent, family, police, friend...)? What history was obtained from this source @ -No Did you review nursing and triage notes (agree or disagree)? Why? @ -I reviewed and agree with nursing and triage notes Were old charts reviewed (outside hosp., previous admission, EMS record, old EKG, old radiological studies, urgent care reports/EKG's, correction records)? Report findings @ -No old charts were reviewed Differential Dyspnea: Coronary syndrome, arrhythmia, tamponade, asthma, COPD, pulmonary embolism, pneumonia, pneumothorax, pulmonary effusion, anaphylaxis, diabetic ketoacidosis, flailed chest, pulmonary contusion, diaphragmatic rupture, anemia, neuromuscular, this is not meant to be an all-inclusive list. EKG interpreted by me (3pts min.). @EKG: Sinus rhythm rate of 60, MT interval 181, QRS duration 114, QTc [address] segment elevation. X-rays interpreted by me (1pt min.). @ -None done CT interpreted by me (1pt min.). @ -None done U/S interpreted by me (1pt. min.). @ -None done What testing was considered but not performed or refused? (CT, X-rays, U/S, labs)? Why? @ -None What meds were considered but not given or refused? Why? @ -None Did you discuss the management of the patient with other professionals (professionals i.e. , PA, GAS LINE REPAIRER, lab, RT, psych nurse, clinical social worker, hand bootmaker, teacher, civil preparedness training officer, major case detective)? Give summary @ -EM Was smoking cessation discussed for >3mins.? @ -No Was critical care preformed (if so, how long)? @ -Yes 35 minutes Were there social determinants of health that impacted care today? How? (Homelessness, low income, unemployed, alcoholism, drug addiction, transportation, low edu. Level, literacy, decrease access to med. care, correction, rehab)? @ -No Was there de-escalation of care discussed even if they declined (Discuss DNR or withdrawal of care, Hospice)? DNR status @ -No What co-morbidities impacted this encounter? (DM, HTN, Smoking, COPD, CAD, Cancer, CVA, ARF, Chemo, Hep., AIDS, mental health diagnosis, sleep apnea, morbid obesity)? @ -None Was patient admitted / discharged? Hospital course, mention meds given and route, prescriptions, significant lab abnormalities, going to OR and other pertinent info. @ -77-year-old male with pleuritic chest pain, routine CT ordered on an outpatient basis showing pulmonary embolism. Patient is hypertensive but other stinson hemodynamically stable. He has persistent pleuritic chest pain. Patient has normal white blood cell count, stable hemoglobin, normal electrolytes and negative troponin. He is placed on high-dose heparin for treatment of acute pulmonary embolism. Echo will be obtained. Patient admitted to internal medicine, case discussed with Les heredia for [facility]. Pulmonology placed on consult. Undiagnosed new problem with uncertain prognosis? @ -No Drug Therapy requiring intensive monitoring for toxicity (Heparin, Nitro, Insulin, Cardizem)? @ -No Were any procedures done? @ -No Diagnosis/symptom? @ -Pulmonary embolism Acute, or Chronic, or Acute on Chronic? @Acute Uncomplicated (without systemic symptoms) or Complicated (systemic symptoms)? @ -Default Side effects of treatment? @ -No Exacerbation, Progression, or Severe Exacerbation? @ -No Poses a threat to life or bodily function? How? (Chest pain, USA, AR, pneumonia, PE, COPD, DKA, ARF, appy, cholecystitis, CVA, Diverticulitis, Homicidal, Suicidal, threat to staff... and all critical care pts) @ -Yes, pulmonary embolism - Lab Data Result diagrams: 08/14/23 17:16 08/14/23 17:16 Lab Results 08/14/23 08/14/23 08/14/23 Range/Units 17:16 17:16 17:16 WBC 8.3 (3.8-10.6) k/uL RBC 4.87 (4.30-5.90) m/uL Hgb 14.0 (13.0-17.5) gm/dL Hct 44.8 (39.0-53.0) % MCV 92.2 (80.0-100.0) fL MCH 28.9 (25.0-35.0) pg MCHC 31.3 (31.0-37.0) g/dL RDW 12.8 (11.5-15.5) % Plt Count 252 (150-450) k/uL MPV 8.7 Neutrophils % 68 % Lymphocytes % 17 % Monocytes % 6 % Eosinophils % 7 % Basophils % 1 % Neutrophils # 5.6 (1.3-7.7) k/uL Lymphocytes # 1.4 (1.0-4.8) k/uL Monocytes # 0.5 (0-1.0) k/uL Eosinophils # 0.6 (0-0.7) k/uL Basophils # 0.1 (0-0.2) k/uL PT 11.1 (10.0-12.5) sec INR 1.0 (<1.2) APTT 25.0 (22.0-30.0) sec Sodium 140 (137-145) mmol/L Potassium 4.1 (3.5-5.1) mmol/L Chloride 109 H (98-107) mmol/L Carbon Dioxide 24 (22-30) mmol/L Anion Gap 7 mmol/L BUN 19 (9-20) mg/dL Creatinine 1.07 (0.66-1.25) mg/dL Est GFR (CKD-EPI)AfAm 78 (>60 ml/min/1.73 sqM) Est GFR (CKD-EPI)NonAf 67 (>60 ml/min/1.73 sqM) Glucose 112 H (74-99) mg/dL Calcium 9.1 (8.4-10.2) mg/dL Total Bilirubin 0.6 (0.2-1.3) mg/dL AST 25 (17-59) U/L ALT 18 (4-49) U/L Alkaline Phosphatase 92 (38-126) U/L Troponin I (0.000-0.034) ng/mL NT-Pro-B Natriuret Pep 2370 pg/mL Total Protein 6.6 (6.3-8.2) g/dL Albumin 3.8 (3.5-5.0) g/dL 08/14/23 Range/Units 17:16 WBC (3.8-10.6) k/uL RBC (4.30-5.90) m/uL Hgb (13.0-17.5) gm/dL Hct (39.0-53.0) % MCV (80.0-100.0) fL MCH (25.0-35.0) pg MCHC (31.0-37.0) g/dL RDW (11.5-15.5) % Plt Count (150-450) k/uL MPV Neutrophils % % Lymphocytes % % Monocytes % % Eosinophils % % Basophils % % Neutrophils # (1.3-7.7) k/uL Lymphocytes # (1.0-4.8) k/uL Monocytes # (0-1.0) k/uL Eosinophils # (0-0.7) k/uL Basophils # (0-0.2) k/uL PT (10.0-12.5) sec INR (<1.2) APTT (22.0-30.0) sec Sodium (137-145) mmol/L Potassium (3.5-5.1) mmol/L Chloride (98-107) mmol/L Carbon Dioxide (22-30) mmol/L Anion Gap mmol/L BUN (9-20) mg/dL Creatinine (0.66-1.25) mg/dL Est GFR (CKD-EPI)AfAm (>60 ml/min/1.73 sqM) Est GFR (CKD-EPI)NonAf (>60 ml/min/1.73 sqM) Glucose (74-99) mg/dL Calcium (8.4-10.2) mg/dL Total Bilirubin (0.2-1.3) mg/dL AST (17-59) U/L ALT (4-49) U/L Alkaline Phosphatase (38-126) U/L Troponin I <0.012 (0.000-0.034) ng/mL NT-Pro-B Natriuret Pep pg/mL Total Protein (6.3-8.2) g/dL Albumin (3.5-5.0) g/dL Critical Care Time Critical Care Time: Yes Total Critical Care Time: 35 Disposition Clinical Impression: Pulmonary embolism Disposition: ADMITTED IP TO THIS [facility] Condition: Stable Is patient prescribed a controlled substance at d/c from ED?: No Referrals: Rod Ruano DO [Primary Care Provider] - 1-2 days Time of Disposition: 17:48
[2023-08-14 17:21] LABS: Basophils # (A) 0.1 k/uL (0-0.2); Basophils % (A) 1 %; Eosinophils # (A) 0.6 k/uL (0-0.7); Eosinophils % (A) 7 %; HCT 44.8 % (39.0-53.0); Lymphocytes # (A) 1.4 k/uL (1.0-4.8); Lymphocytes % (A) 17 %; MCH 28.9 pg (25.0-35.0); MCHC 31.3 g/dL (31.0-37.0); MCV 92.2 fL (80.0-100.0); Mean Platelet Volume 8.7; Monocytes # (A) 0.5 k/uL (0-1.0); Monocytes % (A) 6 %; Neutrophils # (A) 5.6 k/uL (1.3-7.7); Neutrophils % (A) 68 %; Platelet Count 252 k/uL (150-450); RBC 4.87 m/uL (4.30-5.90); RDW 12.8 % (11.5-15.5); WBC 8.3 k/uL (3.8-10.6)
[2023-08-14 17:29] LABS: Prothrombin Time 11.1 sec (10.0-12.5)
[2023-08-14 17:31] LABS: ALT 18 U/L (4-49); AST 25 U/L (17-59); African American GFR (CKD) 78 (>60 ml/min/1.73 sqM); Albumin 3.8 g/dL (3.5-5.0); Alkaline Phosphatase 92 U/L (38-126); Anion Gap 7 mmol/L; Blood Urea Nitrogen 19 mg/dL (9-20); Calcium 9.1 mg/dL (8.4-10.2); Carbon Dioxide 24 mmol/L (22-30); Chloride 109 mmol/L (98-107); Glucose 112 mg/dL (74-99); Non-African American GFR(CKD) 67 (>60 ml/min/1.73 sqM); Potassium 4.1 mmol/L (3.5-5.1); Sodium 140 mmol/L (137-145); Total Bilirubin 0.6 mg/dL (0.2-1.3); Total Protein 6.6 g/dL (6.3-8.2)
[2023-08-14 17:39] LABS: NT-Pro-B-Type Natriuretic Pept 2370 pg/mL
[2023-08-14] MEDS ORDERED: HEPARIN SODIUM 1,000 UN/ML (10ML VL) IV PRN (17:44)
[2023-08-14] MEDS ORDERED: ACETAMINOPHEN TAB 325 MG TAB PO PRN (17:45)
[2023-08-14] MEDS ORDERED: NALOXONE 0.4 MG/ML 1 ML VIAL IV PRN (17:45)
[2023-08-14] MEDS: HEPARIN SODIUM 1,000 UN/ML (10ML VL) IV ONE (18:12)
[2023-08-14] MEDS: HEPARIN SOD,PORK IN 0.45% NACL 25,000 UNIT in 0.45% NACL 1 250ML.BAG IV SCH (18:13)
[2023-08-15 07:55] LABS: Basophils # (A) 0.1 k/uL (0-0.2); Basophils % (A) 1 %; Eosinophils # (A) 0.4 k/uL (0-0.7); Eosinophils % (A) 5 %; HCT 40.8 % (39.0-53.0); HGB 13.1 gm/dL (13.0-17.5); Lymphocytes # (A) 1.5 k/uL (1.0-4.8); Lymphocytes % (A) 18 %; MCH 29.1 pg (25.0-35.0); MCHC 32.2 g/dL (31.0-37.0); MCV 90.4 fL (80.0-100.0); Mean Platelet Volume 9.2; Monocytes # (A) 0.5 k/uL (0-1.0); Monocytes % (A) 6 %; Neutrophils # (A) 6.1 k/uL (1.3-7.7); Neutrophils % (A) 70 %; Platelet Count 228 k/uL (150-450); RBC 4.51 m/uL (4.30-5.90); RDW 13.1 % (11.5-15.5); WBC 8.7 k/uL (3.8-10.6)
[2023-08-15] MEDS: ATORVASTATIN 20 MG TAB PO SCH (10:29)
[2023-08-15] MEDS: METOPROLOL SUCCINATE (ER) 25 MG TAB.ER.24H PO SCH (10:29)
[2023-08-15] MEDS: lisinopriL 20 MG TAB PO SCH (10:29)
[2023-08-15] MEDS: Apixaban Initiation Dose--VTE 5 MG TAB PO SCH (10:29)
--- NOTE | 2023-08-15 11:48 | US ---
EXAMINATION TYPE: US venous doppler duplex LE DATE OF EXAM: 08/15/2023 11:18 AM COMPARISON: NONE CLINICAL INDICATION: Male, 77 years old with history of PE; PE. No pain or edema bilateral legs SIDE PERFORMED: Bilateral TECHNIQUE: The lower extremity deep venous system is examined utilizing real time linear array sonog maico with graded compression, doppler sonography and color-flow sonography. VESSELS IMAGED: Common Femoral Vein Deep Femoral Vein Greater Saphenous Vein * Femoral Vein Popliteal Vein Small Saphenous Vein * Proximal Calf Veins (* superficial vessels) Right Leg: no evidence of DVT as visualized Left Leg: no evidence of DVT as visualized IMPRESSION: Bilateral lower extremity ultrasound negative for deep venous thrombosis.
--- NOTE | 2023-08-15 11:57 | P.CNPUL ---
History of Present Illness Consult date: 08/15/23 Requesting physician: Martha Yuen Reason for consult: pulmonary embolism Chief complaint: Left-sided pleuritic chest pain, and dyspnea on exertion History of present illness: This is a 77-year-old white male, history of robotic assisted upper laparoscopic partial nephrectomy back on 06/22/20. Patient has been following up with his urologist, and on 08/13, patient underwent CT of the chest abdomen for follow-up on his underlying malignancy. His CT of the chest showed evidence of filling defect within the left lower lobe pulmonary arterial branches compatible with pulmonary embolism. There was also evidence of a small left-sided pleural effusion. Patient was notified by his urologist to come to ER to be admitted. Patient was seen in the ER, and he was admitted and this consult was initiated. Pulmonary stinson the patient developed this left-sided pleuritic chest pain about 3 weeks ago, saw his primary care physician and chest x-ray was unremarkable, he was told that this is most likely pleurisy. In addition to his pain, the patient has been noticing over the last 3 weeks some dyspnea on exertion. Has been riding his bike but recently he has been noticing more shortness of breath than usual. Patient thought that his chest pain is causing his shortness of breath./Attributed to pleurisy patient denies any history of previous thromboembolic disease, no family history of thromboembolic disease. Presently the patient is on heparin, and it is therapeutic. Patient denies any lightheadedness, denies any chest pain, denies any orthopnea or PND. Venous Doppler of both lower extremities came back negative for DVT Review of Systems REVIEW OF SYSTEMS: CONSTITUTIONAL: Negative. EYES: Negative. ENT: Negative. CARDIAC: Negative. PULMONARY: As noted in HPI GI: Negative. GENITOURINARY: History of renal cell carcinoma and previous partial nephrectomy MUSCULOSKELETAL: Negative. SKIN: Negative. NEUROPSYCH: Negative. ENDOCRINE: Negative. HEMATOLOGIC: As noted in HPI. Past Medical History Past Medical History: GERD/Reflux, Hyperlipidemia, Hypertension, Osteoarthritis (OA) Additional Past Medical History / Comment(s): Routine colonoscopy. hx. kidney stones, was using eye drops for pressure but none needed since cataract surgery History of Any Multi-Drug Resistant Organisms: None Reported Past Surgical History: Hernia Repair, Joint Replacement, Orthopedic Surgery, Tonsillectomy Additional Past Surgical History / Comment(s): arthroscopy yeni shoulders,umbilical hernia,left inguinal hernia repair,arthroscopy lt knee x2, R total knee, yeni cataract surg, colonoscopies. partial nephrectomy Past Anesthesia/Blood Transfusion Reactions: No Reported Reaction Past Psychological History: No Psychological Hx Reported Additional Psychological History / Comment(s): Resides with spouse Smoking Status: Never smoker Past Alcohol Use History: None Reported Past Drug Use History: None Reported - Past Family History Father Family Medical History: Cancer Mother Family Medical History: Cancer Medications and Allergies Home Medications Medication Instructions Recorded Confirmed Type Simvastatin [Zocor] 20 mg PO HS 12/06/19 08/14/23 History Alendronate Sodium 70 mg PO MO 06/12/23 08/14/23 History Calcium Carbonate [Calcium] 600 mg PO DAILY 06/12/23 08/14/23 History Metoprolol Succinate [Metoprolol 12.5 mg PO DAILY 06/12/23 08/14/23 History Succinate ER] lisinopriL [Zestril] 20 mg PO DAILY 08/14/23 08/14/23 History Allergies Allergy/AdvReac Type Severity Reaction Status Date / Time hydrocodone bitartrate AdvReac prolonged Verified 08/14/23 18:07 [From [place]] hiccups Physical Exam Vitals: Vital Signs Temp Pulse Pulse Resp BP BP Pulse Ox 08/15/23 08:00 64 16 172/83 95 08/15/23 03:10 98.4 F 81 18 149/74 95 08/14/23 23:14 97.6 F 73 18 139/70 96 08/14/23 22:41 18 08/14/23 18:47 98.1 F 18 183/91 97 08/14/23 18:10 98.3 F 54 L 17 165/83 95 08/14/23 17:00 61 16 186/99 97 08/14/23 16:48 97.8 F 61 22 191/96 96 Intake and Output 08/14/23 08/15/23 08/15/23 22:59 06:59 14:59 Intake Total 240 120.227 110 Output Total 1 Balance 240 119.227 110 Intake: Intake, IV Titration 120.227 Amount Heparin Sod,Pork in 0.45% 120.227 NaCl 25,000 unit In 0.45 % NaCl 1 250ml.bag @ 18 UNITS/KG/HR 16.737 mls/hr IV .[id number] [facility]AN[facility] Rx#: [id number] Oral 240 110 Output: Urine 1 Other: Weight 92.986 kg 101.6 kg General: Revealed a 77-year-old white male in no distress Skin: Skin is warm and dry and no rashes or lesions are noted. Eye: Pupils are equal, round and reactive to light, extra-ocular movements are intact; there is normal conjunctiva bilaterally. Ears, nose, mouth and throat: There are moist mucous membranes and no oral lesions. Neck: The neck is supple, there is no tenderness or JVD. Cardiovascular: There is a regular rate and rhythm. No murmur, rub or gallop is appreciated. Respiratory: Clear throughout no crackles rhonchi or wheezes Gastrointestinal: Soft, non-distended, non-tender abdomen without masses or organomegaly noted. There is no rebound or guarding present. Bowel sounds are unremarkable. Back: There is no tenderness to palpation in the midline. There is no obvious deformity. Musculoskeletal: Normal ROM, no tenderness, There is no pedal edema. There is no calf tenderness or swelling. No cords were appreciated. Neurological: CN II-XII intact, Cranial nerves III through XII are intact. There are no obvious motor or sensory deficits. Coordination appears grossly intact. Speech is normal. Psychiatric: Cooperative, appropriate mood & affect, normal judgment. Results - Laboratory Findings CBC and BMP: 08/15/23 07:21 08/14/23 17:16 PT/INR, D-dimer PT 11.1 sec (10.0-12.5) 08/14/23 17:16 INR 1.0 (<1.2) 08/14/23 17:16 Abnormal lab findings: Abnormal Labs 08/14/23 08/15/23 08/15/23 17:16 00:08 07: APTT 88.4 H 63.8 H Chloride 109 H Glucose 112 H - Diagnostic Findings CT scan - chest: image reviewed (As noted in HPI) Assessment and Plan Assessment: Impression: Subacute pulmonary embolism, no clear-cut provoking factor for his thromboembolic disease. Left-sided chest. And shortness of breath secondary to above. History of clear-cell renal cell carcinoma, status post partial nephrectomy in 2020. Benign essential hypertension Degenerative joint disease Dyslipidemia GERD without esophagitis History of diverticulosis. Recommendation: Continue heparin for now however will transition to Eliquis sometime later today. Continue supportive care measures Checked venous Doppler, came back negative for DVT Patient was made aware that he will likely be on Eliquis lifetime treatment, Will possibly arrange for discharge home in the next 24 hours. Will continue to follow in the meantime Time with Patient: Greater than 30
--- NOTE | 2023-08-15 14:55 | CA ---
Transthoracic Echo Report Name: Harvey Ayala Age: 77 Gender: M : 1945 Exam Date: 08/15/2023 13:02 Exam Location: [facility] Ht (in): 69 Wt (lb): 205 Ordering Physician: Clifton Mcdonough MD Attending/Referring Phys: [id number], Sharonda Cubing Machine Tender Agata Hernandez RDCS Procedure CPT: Indications: PE Cardiac Hx: Technical Quality: Fair Contrast 1: Total Dose (mL): Contrast 2: Total Dose (mL): MEASUREMENTS (Male / Female) Normal Values 2D ECHO LVOT Diameter 2.1 cm LV Diastolic Volume MOD BP 121.2 cm??? 67 - 155 / 56 - 104 cm??? LV Systolic Volume MOD BP 38.2 cm??? 22 - 58 / 19 - 49 cm??? LV Ejection Fraction MOD BP 68.5 % >= 55 % LV Cardiac Index MOD BP 2120.5 cm???/min???m??? LV Diastolic Volume MOD 4C 121.9 cm??? LV Systolic Volume MOD 4C 36.5 cm??? LV Ejection Fraction MOD 4C 70.1 % LV Cardiac Index MOD 4C 2181.3 cm???/min???m??? LV Diastolic Length 4C 9.3 cm LV Systolic Length 4C 7.2 cm LV Diastolic Volume MOD 2C 119.1 cm??? LV Systolic Volume MOD 2C 40.0 cm??? LV Ejection Fraction MOD 2C 66.4 % LV Cardiac Index MOD 2C 2019.3 cm???/min???m??? LV Diastolic Length 2C 9.4 cm LV Systolic Length 2C 7.3 cm LA Volume 62.2 cm??? 18 - 58 / 22 - 52 cm??? LA Volume Index 28.9 cm???/m??? 16 - 28 cm???/m??? Ascending Aorta Diameter 3.8 cm DOPPLER AV Peak Velocity 169.8 cm/s AV Peak Gradient 11.5 mmHg AV Mean Velocity 111.6 cm/s AV Mean Gradient 5.7 mmHg AV Velocity Time Integral 34.6 cm LVOT Peak Velocity 119.3 cm/s LVOT Peak Gradient 5.7 mmHg LVOT Velocity Time Integral 24.9 cm LVOT Stroke Volume 84.9 cm??? LVOT Stroke Volume Index 40.6 ml/m??? LVOT Cardiac Index 2168.0 cm???/min???m??? AV Area Cont Eq vti 2.5 cm??? AV Area Cont Eq pk 2.4 cm??? MV Area PHT 3.1 cm??? Mitral E Point Velocity 64.6 cm/s Mitral A Point Velocity 77.4 cm/s Mitral E to A Ratio 0.8 MV Deceleration Time 245.5 ms TR Peak Velocity 329.4 cm/s TR Peak Gradient 43.4 mmHg Right Atrial Pressure 10.0 mmHg Pulmonary Artery Systolic Pressu 53.4 mmHg Right Ventricular Systolic Press 53.4 mmHg FINDINGS Left Ventricle Left ventricular ejection fraction is estimated at 55-60 %. Left ventricular cavity size normal. Left ventricular wall thickness normal. No obvious regional wall motion abnormalities. Right Ventricle Normal right ventricular size and function. Moderatly elevated right ventricular systolic pressure. Right Atrium Right atrium not well visualized. Left Atrium Mildly increased left atrial volume. Mitral Valve Structurally normal mitral valve. No evidence for mitral valve prolapse. No mitral stenosis. Mild mitral regurgitation.mitral annular calcification. Aortic Valve Aortic valve not well visualized. No aortic stenosis. Mild aortic regurgitation.aortic valve sclerosis. Tricuspid Valve Structurally normal tricuspid valve. No tricuspid stenosis. Mild to moderate tricuspid regurgitation. Pulmonic Valve Pulmonic valve not well visualized. Pericardium No pericardial effusion. Aorta Normal size aortic root and proximal ascending aorta. CONCLUSIONS Normal left ventricle size and systolic function Normal right ventricular size Mild mitral and aortic regurgitation [id number] tricuspid regurgitation with moderate pulmonary hypertension Previewed by: Dr. Katelyn Ghosh MD (Electronically Signed) Final Date: 15 August 2023 14:54
--- NOTE | 2023-08-15 15:11 | P.HPIM ---
History of Present Illness H&P Date: 08/15/23 Chief Complaint: Pleuritic chest pain 77-year-old white male, history of robotic assisted upper laparoscopic partial nephrectomy back on 06/22/20. Patient has been following up with his urologist, and on 08/13, patient underwent CT of the chest abdomen for follow-up on his un derlying malignancy. --CT of the chest showed evidence of filling defect within the left lower lobe pulmonary arterial branches compatible with pulmonary embolism. There was also evidence of a small left-sided pleural effusion. Patient was notified by his urologist to come to ER to be admitted. Patient developed this left-sided pleuritic chest pain about 3 weeks ago, saw his primary care physician and chest x-ray was unremarkable, he was told that this is most likely pleurisy. In addition to his pain, the patient has been noticing over the last 3 weeks some dyspnea on exertion. Has been riding his bike but recently he has been noticing more shortness of breath than usual. Patient denies any history of previous thromboembolic disease, no family history of thromboembolic disease. Presently the patient is on heparin, and it is therapeutic. Patient denies any lightheadedness, denies any chest pain, denies any orthopnea or PND. Venous Doppler of both lower extremities came back negative for DVT Review of Systems REVIEW OF SYSTEMS: CONSTITUTIONAL: No fever, no malaise, no fatigue. HEENT: No recent visual problems or hearing problems. Denied any sore throat. CARDIOVASCULAR: No chest pain, orthopnea, PND, no palpitations, no syncope. PULMONARY: No shortness of breath, no cough, no hemoptysis. GASTROINTESTINAL: No diarrhea, no nausea, no vomiting, no abdominal pain. NEUROLOGICAL: No headaches, no weakness, no numbness. HEMATOLOGICAL: Denies any bleeding or petechiae. GENITOURINARY: Denies any burning micturition, frequency, or urgency. MUSCULOSKELETAL/RHEUMATOLOGICAL: Denies any joint pain, swelling, or any muscle pain. ENDOCRINE: Denies any polyuria or polydipsia. The rest of the 14-point review of systems is negative. Past Medical History Past Medical History: GERD/Reflux, Hyperlipidemia, Hypertension, Osteoarthritis (OA) Additional Past Medical History / Comment(s): Routine colonoscopy. hx. kidney stones, was using eye drops for pressure but none needed since cataract surgery History of Any Multi-Drug Resistant Organisms: None Reported Past Surgical History: Hernia Repair, Joint Replacement, Orthopedic Surgery, Tonsillectomy Additional Past Surgical History / Comment(s): arthroscopy yeni shoulders,umbilical hernia,left inguinal hernia repair,arthroscopy lt knee x2, R total knee, yeni cataract surg, colonoscopies. partial nephrectomy Past Anesthesia/Blood Transfusion Reactions: No Reported Reaction Past Psychological History: No Psychological Hx Reported Additional Psychological History / Comment(s): Resides with spouse Smoking Status: Never smoker Past Alcohol Use History: None Reported Past Drug Use History: None Reported - Past Family History Father Family Medical History: Cancer Mother Family Medical History: Cancer Medications and Allergies Home Medications Medication Instructions Recorded Confirmed Type Simvastatin [Zocor] 20 mg PO HS 12/06/19 08/14/23 History Alendronate Sodium 70 mg PO MO 06/12/23 08/14/23 History Calcium Carbonate [Calcium] 600 mg PO DAILY 06/12/23 08/14/23 History Metoprolol Succinate [Metoprolol 12.5 mg PO DAILY 06/12/23 08/14/23 History Succinate ER] lisinopriL [Zestril] 20 mg PO DAILY 08/14/23 08/14/23 History Allergies Allergy/AdvReac Type Severity Reaction Status Date / Time hydrocodone bitartrate AdvReac prolonged Verified 08/14/23 18:07 [From [place]] hiccups Physical Exam Vitals: Vital Signs Temp Pulse Pulse Resp BP BP Pulse Ox 08/15/23 08:00 64 16 172/83 95 08/15/23 03:10 98.4 F 81 18 149/74 95 08/14/23 23:14 97.6 F 73 18 139/70 96 08/14/23 22:41 18 08/14/23 18:47 98.1 F 18 183/91 97 08/14/23 18:10 98.3 F 54 L 17 165/83 95 08/14/23 17:00 61 16 186/99 97 08/14/23 16:48 97.8 F 61 22 191/96 96 Intake and Output 08/14/23 08/15/23 08/15/23 22:59 06:59 14:59 Intake Total 240 120.227 110 Output Total 1 Balance 240 119.227 110 Intake: Intake, IV Titration 120.227 Amount Heparin Sod,Pork in 0.45% 120.227 NaCl 25,000 unit In 0.45 % NaCl 1 250ml.bag @ 18 UNITS/KG/HR 16.737 mls/hr IV .[id number] [facility] Rx#: [id number] Oral 240 110 Output: Urine 1 Other: Weight 92.986 kg 101.6 kg General: Revealed a 77-year-old white male in no distress Skin: Skin is warm and dry and no rashes or lesions are noted. Eye: Pupils are equal, round and reactive to light, extra-ocular movements are intact; there is normal conjunctiva bilaterally. Ears, nose, mouth and throat: There are moist mucous membranes and no oral lesions. Neck: The neck is supple, there is no tenderness or JVD. Cardiovascular: There is a regular rate and rhythm. No murmur, rub or gallop is appreciated. Respiratory: Clear throughout no crackles rhonchi or wheezes Gastrointestinal: Soft, non-distended, non-tender abdomen without masses or org anomegaly noted. There is no rebound or guarding present. Bowel sounds are unremarkable. Musculoskeletal: Normal ROM, no tenderness, There is no pedal edema. There is no calf tenderness or swelling. No cords were appreciated. Neurological: CN II-XII intact, Cranial nerves III through XII are intact. There are no obvious motor or sensory deficits. Coordination appears grossly intact. Speech is normal. Results CBC & Chem 7: 08/15/23 07:21 08/14/23 17:16 Labs: Abnormal Lab Results - Last 24 Hours (Table) 08/14/23 08/15/23 08/15/23 Range/Units 17:16 00:08 07:21 APTT 88.4 H 63.8 H (22.0-30.0) sec Chloride 109 H (98-107) mmol/L Glucose 112 H (74-99) mg/dL Thrombosis Risk Factor Assmnt - Choose All That Apply Each Factor Represents 1 point: Medical pt on bed rest, Obesity (BMI >25) Other Risk Factors: Yes Each Risk Factor Represents 3 Points: Age 75 years or older Other congenital or acquired thrombophilia - If yes, enter type in comment: No Thrombosis Risk Factor Assessment Total Risk Factor Score: 5 Thrombosis Risk Factor Assessment Level: High Risk Assessment and Plan Assessment: 1. Acute/subacute pulmonary embolism --Patient has been treated with IV heparin infusion; was evaluated by pulmonary service and was transition to Eliquis -- Pulmonary recommending to continue Eliquis indefinitely 2. Hypertension; metoprolol 12.5 mg daily; lisinopril 20 mg daily 3. Hyperlipidemia; Lipitor 20 mg daily 4. Clear-cell renal cell carcinoma; patient is status post nephrectomy in 2020 5. Degenerative joint disease DVT prophylaxis; SCDs/Eliquis CODE STATUS full code;
[2023-08-16 03:18] VITALS: TEMP 98.1
[2023-08-16 07:07] LABS: Basophils % (A) 1 %; Eosinophils # (A) 0.5 k/uL (0-0.7); Eosinophils % (A) 6 %; HCT 45.4 % (39.0-53.0); HGB 14.5 gm/dL (13.0-17.5); Lymphocytes # (A) 1.5 k/uL (1.0-4.8); Lymphocytes % (A) 20 %; MCH 29.5 pg (25.0-35.0); MCV 92.2 fL (80.0-100.0); Mean Platelet Volume 8.7; Monocytes # (A) 0.5 k/uL (0-1.0); Monocytes % (A) 7 %; Neutrophils # (A) 4.8 k/uL (1.3-7.7); Neutrophils % (A) 65 %; Platelet Count 212 k/uL (150-450); RBC 4.93 m/uL (4.30-5.90); RDW 12.9 % (11.5-15.5); WBC 7.4 k/uL (3.8-10.6)
[2023-08-16 07:29] LABS: African American GFR (CKD) >90 (>60 ml/min/1.73 sqM); Anion Gap 3 mmol/L; Blood Urea Nitrogen 11 mg/dL (9-20); Calcium 8.8 mg/dL (8.4-10.2); Carbon Dioxide 26 mmol/L (22-30); Chloride 109 mmol/L (98-107); Glucose 92 mg/dL (74-99); Non-African American GFR(CKD) 81 (>60 ml/min/1.73 sqM); Potassium 4.3 mmol/L (3.5-5.1); Sodium 138 mmol/L (137-145)
[2023-08-16 09:01] VITALS: RESP 16
[2023-08-16 11:43] VITALS: BP 166/78; PULSE 47
--- NOTE | 2023-08-16 12:12 | P.PN ---
Subjective Progress Note Date: 08/16/23 Principal diagnosis: Subacute pulmonary embolism This is a 77-year-old white male, history of robotic assisted upper laparoscopic partial nephrectomy back on 06/22/20. Patient has been following up with his urologist, and on 08/13, patient underwent CT of the chest abdomen for follow-up on his underlying malignancy. His CT of the chest showed evidence of filling defect within the left lower lobe pulmonary arterial branches compatible with pulmonary embolism. There was also evidence of a small left-sided pleural effusion. Patient was notified by his urologist to come to ER to be admitted. Patient was seen in the ER, and he was admitted and this consult was initiated. Pulmonary stinson the patient developed this left-sided pleuritic chest pain about 3 weeks ago, saw his primary care physician and chest x-ray was unremarkable, he was told that this is most likely pleurisy. In addition to his pain, the patient has been noticing over the last 3 weeks some dyspnea on exertion. Has been riding his bike but recently he has been noticing more shortness of breath than usual. Patient thought that his chest pain is causing his shortness of breath./Attributed to pleurisy patient denies any history of previous thromboembolic disease, no family history of thromboembolic disease. Presently the patient is on heparin, and it is therapeutic. Patient denies any lighthea dedness, denies any chest pain, denies any orthopnea or PND. Venous Doppler of both lower extremities came back negative for DVT Patient was reevaluated today on 08/16/23, patient is doing much better, relatively asymptomatic, he is already on Eliquis, echocardiogram showed no evidence of RV strain, patient does have pulmonary hypertension which is expected. Patient is feeling better overall, and I am clearing the patient to be discharged home on Eliquis and follow-up on outpatient basis. Labs today are unremarkable including CBC, basic metabolic profile, renal profile. Objective - Vital Signs Vital signs: Vital Signs Temp 98.1 F 08/16/23 03:14 Pulse 47 L 08/16/23 11:43 Resp 16 08/16/23 11:43 BP 166/78 08/16/23 11:43 Pulse Ox 95 08/16/23 11:43 FiO2 Intake & Output 08/15/23 08/16/23 08/16/23 18:59 06:59 18:59 Intake Total 220 120 120 Output Total 0 Balance 220 120 120 Weight 63 kg Intake: Oral 220 120 120 Output: Urine 0 Other: # Voids 1 - Exam General: Revealed a 77-year-old white male in no distress Skin: Skin is warm and dry and no rashes or lesions are noted. Eye: Pupils are equal, round and reactive to light, extra-ocular movements are intact; there is normal conjunctiva bilaterally. Ears, nose, mouth and throat: There are moist mucous membranes and no oral lesions. Neck: The neck is supple, there is no tenderness or JVD. Cardiovascular: There is a regular rate and rhythm. No murmur, rub or gallop is appreciated. Respiratory: Clear throughout no crackles rhonchi or wheezes Gastrointestinal: Soft, non-distended, non-tender abdomen without masses or organomegaly noted. There is no rebound or guarding present. Bowel sounds are unremarkable. Back: There is no tenderness to palpation in the midline. There is no obvious deformity. Musculoskeletal: Normal ROM, no tenderness, There is no pedal edema. There is no calf tenderness or swelling. No cords were appreciated. Neurological: CN II-XII intact, Cranial nerves III through XII are intact. There are no obvious motor or sensory deficits. Coordination appears grossly intact. Speech is normal. Psychiatric: Cooperative, appropriate mood & affect, normal judgment. - Labs CBC & Chem 7: 08/16/23 06:32 08/16/23 06:32 Labs: Abnormal Lab Results - Last 24 Hours (Table) 08/16/23 Range/Units 06:32 Chloride 109 H (98-107) mmol/L Assessment and Plan Assessment: Impression: Subacute pulmonary embolism, no clear-cut provoking factor for his thromboembolic disease. Left-sided chest. And shortness of breath secondary to above. History of clear-cell renal cell carcinoma, status post partial nephrectomy in 2020. Benign essential hypertension Degenerative joint disease Dyslipidemia GERD without esophagitis History of diverticulosis. Recommendation: Cleared for discharge today on Eliquis Continue supportive care measures Reviewed the results of his echocardiogram Patient can see me in the office in 1 to 2-week Time with Patient: Less than 30
== END 2023-08-16 14:52 | disposition home or self-care (01) | DRG 176 ==
LOC: EC 16:46 → 3SCARD 17:46
PROVIDERS: ADMIT Hospitalist; ATTEND Hospitalist
DX: I26.99 Other pulmonary embolism without acute cor pulmonale (principal); I10 Essential (primary) hypertension; E78.5 Hyperlipidemia, unspecified; K21.9 Gastro-esophageal reflux disease without esophagitis; M19.90 Unspecified osteoarthritis, unspecified site; Z79.899 Other long term (current) drug therapy; Z85.528 Personal history of other malignant neoplasm of kidney; Z87.442 Personal history of urinary calculi; Z90.5 Acquired absence of kidney; Z88.5 Allergy status to narcotic agent; I08.3 Combined rheumatic disorders of mitral, aortic and tricuspid valves; I27.20 Pulmonary hypertension, unspecified; Z98.42 Cataract extraction status, left eye; Z98.41 Cataract extraction status, right eye; Z96.651 Presence of right artificial knee joint; Z87.19 Personal history of other diseases of the digestive system
CPT/HCPCS: 36415; 80048; 80053; 83880; 84484; 85025; 85610; 85730; 93005; 93306; 93970; 96365; 96366; 99291

== ENCOUNTER → 2023-08-14 | Outpatient (CLI) | payer MEDICARE, BC ==
[2023-08-14 10:46] LABS: African American GFR (CKD) 78 (>60 ml/min/1.73 sqM); Blood Urea Nitrogen 19 mg/dL (9-20); Non-African American GFR(CKD) 68 (>60 ml/min/1.73 sqM)
--- NOTE | 2023-08-14 12:39 | CT ---
EXAMINATION TYPE: CT abdomen wo con DATE OF EXAM: 08/14/2023 COMPARISON: CT abdomen 06/18/2022 HISTORY: Hx LT renal ca, partial nephrectomy CT DLP: 660.70 mGycm Examination of the solid and hollow viscera is limited given the lack of contrast. Unenhanced CT of t he abdomen was performed. Lack of contrast does limit evaluation. FINDINGS: LUNG BASES: There is new pleural thickening at the left lung base with pleural-based nodule measuring 2.6 cm not present previously. Metastatic disease is not excluded. CT of the chest is recommended wi th contrast. LIVER/GB: The gallbladder is unremarkable. Scattered hypoattenuating hepatic lesions measure up to 1. 7 cm and likely reflects cysts. This can be confirmed with ultrasound. PANCREAS: No pancreatic mass i dentified. No inflammatory process seen. SPLEEN: No evidence for splenomegaly. No intrasplenic lesions seen. ADRENALS: No adrenal nodules identified. No evidence for thickening. KIDNEYS: Partial nephrectomy changes lower pole left kidney. No evidence recurrent mass at the surgic al site. No suspicious appearing renal masses on this unenhanced study which is limited. No evidence for renal mass. No nephrolithiasis. No hydronephrosis. BOWEL: Visualized bowel loops are of normal caliber. Lymph nodes: No evidence for adenopathy greater than 1 cm. Abdominal aorta: Atheromatous changes seen. No evidence for aneurysm. Other: No significant abnormality. IMPRESSION: 1.There is new pleural thickening at the left lung base with pleural-based nodule measuring 2.6 cm no t present previously. Metastatic disease is not excluded. CT of the chest is recommended with contras t. 2. Status post partial nephrectomy lower pole left kidney. No evidence for recurrent or residual mass .
--- NOTE | 2023-08-14 16:02 | CT ---
EXAMINATION TYPE: CT chest abdomen w con DATE OF EXAM: 08/14/2023 COMPARISON: 06/18/2022 HISTORY: LT side renal ca, partial nephrectomy. CT DLP: 1469.20 mGycm CONTRAST: CT scan of the chest, abdomen is performed with Oral Contrast and with IV Contrast, patient injected with 80 mL of Isovue 300. CT Chest: LUNGS: The lungs are clear and free of infiltrate. Small left pleural effusion with pleural thickenin g and nodular density measuring 2.7 cm. While this could reflect an area of atelectasis or pulmonary infarct however underlying nodule is not excluded. Follow-up recommended to exclude pulmonary nodule. The right lung is clear. No pulmonary nodule or mass is detected. No pleural effusion or CT evidenc e of interstitial lung disease. MEDIASTINUM: Filling defects are seen within the lower lobe lobar branches compatible with pulmonary embolism. Thoracic aorta is of normal caliber. The heart is not enlarged. No evidence for mediasti nal mass or adenopathy. HILAR STRUCTURES: No evidence for mass. No hilar adenopathy is appreciated. OTHER: No significant abnormality. CONTRAST CT ABDOMEN AND PELVIS FINDINGS: LIVER/GB: No calcified gallstones. Stable hepatic cystic changes. Biliary tree is of normal caliber . PANCREAS: No inflammation. No distinct mass. SPLEEN: No splenic enlargement. No lesion seen. ADRENALS: No nodule. No thickening. KIDNEYS/BLADDER: Postoperative changes of partial nephrectomy lower pole left kidney. No recurrent s olid mass is seen. No hydronephrosis. No nephrolithiasis. No distinct renal mass. BOWEL: Visualized bowel loops are of normal caliber. LYMPH NODES: No greater than 1cm abdominal or pelvic lymph nodes are appreciated. AORTA: No significant abnormality. OSSEOUS STRUCTURES: No significant abnormality is seen. OTHER: No significant additional abnormality is seen. IMPRESSION: 1. Filling defects noted within the left lower lobe pulmonary arterial branches compatible with pulmo nary embolism. 2. Pleural-based density may reflect infarct given the aforementioned PE. Small left-sided pleural ef fusion. Appropriate follow-up to exclude underlying pulmonary nodule. 3. Partial left-sided nephrectomy changes without evidence for recurrent disease.
== END | disposition home or self-care (01) ==
LOC: RADCTMAIN 09:59
PROVIDERS: ATTEND Urology
DX: C64.2 Malignant neoplasm of left kidney, except renal pelvis (principal); J90 Pleural effusion, not elsewhere classified; Z90.5 Acquired absence of kidney
CPT/HCPCS: 82565; 84520; 71260; 74150; 74160; 36415; Q9967

== ENCOUNTER → 2023-11-19 | Outpatient (CLI) | payer MEDICARE, BC ==
--- NOTE | 2023-11-23 00:51 | PE ---
EXAMINATION TYPE: PET CT fusion skull to thigh DATE OF EXAM: 11/19/2023 COMPARISON: CT chest abdomen 08/14/2023 Prior PET/CT: No prior PET CTs at this location. HISTORY: Kidney cancer TECHNIQUE: Following the intravenous administration of 12.26 mCi of F-18 FDG, whole body images are performed from the skull base to the midthigh. Images are reviewed on the computer in the coronal, a xial, and sagittal planes. Reconstructed rotating images are created on independent workstation and reviewed on the computer. A localization and attenuation correction CT is performed in conjunction with the PET scan. DLP: 923.76 mGycm SCAN: Subsequent Blood glucose: 85 mg/dL Average Mediastinum SUV: 2.63 Average Liver SUV: 3.42 FINDINGS: NECK: No abnormal uptake THORAX: No abnormal uptake. No suspicious uptake within the lung shi ABDOMEN: There appears to be normal excretion of radiotracer through the bilateral kidneys. No suspic ious focal uptake identified. PELVIS: No abnormal uptake OSSEOUS STRUCTURES: No abnormal uptake LOCALIZATION CT: The prostate is prominent. Uptake within the inferior left kidney posterior medial c ould be within the renal cortex., Image 176, SUV 13 point for. Radiotracer distribution through the k idneys otherwise appears normal. COMPARISON: There is a history of prior partial nephrectomy on the left. This may account for the upt prince at the surgery site. Cannot exclude local recurrence IMPRESSION: 1. Postsurgical changes at the inferior medial left kidney. There is some uptake at the surgery site which could be related to normal excretion of radiotracer. Local recurrence however would be difficul t to exclude. The localization CT appears normal. Close follow-up is recommended. 2. Previous pleural thickening and pleural effusions have resolved. No suspicious radiotracer uptake within the thorax. [facility], , 11/23/2023 12:48 AM
== END | disposition home or self-care (01) ==
LOC: RADPETMAIN 13:49
PROVIDERS: ATTEND Internal Medicine Hematology & Oncology
DX: C64.2 Malignant neoplasm of left kidney, except renal pelvis
CPT/HCPCS: 78815

== ENCOUNTER → 2024-05-27 | Outpatient (CLI) | payer MEDICARE, BC ==
[2024-05-27 15:26] LABS: African American GFR (CKD) 67 (>60 ml/min/1.73 sqM); Blood Urea Nitrogen 22 mg/dL (9-20); Non-African American GFR(CKD) 58 (>60 ml/min/1.73 sqM)
--- NOTE | 2024-05-27 19:42 | CT ---
EXAMINATION TYPE: CT chest w con DATE OF EXAM: 05/27/2024 4:49 PM COMPARISON: 08/14/2023 CLINICAL INDICATION: Male, 78 years old with history of C64.2 MALIGNANT NEOPLASM OF LEFT KIDNEY,, Mal ignant Neoplasm left kidney TECHNIQUE: Axial images were obtained at 5 mm thick sections. Reconstructed images are reviewed on [employer] computer in the coronal plane. Contrast used:80 mL of Isovue 300 with IV Contrast, (none if empty) Oral contrast used: (none if empty) CT DLP: combined 2449.3 mGycm, Automated exposure control for dose reduction was used. FINDINGS: Portion of the thyroid visualized is normal. There is a 0.3 cm stable nodule anterior lateral left lung. Series 4 image 33. Tiny pleural-based nod ules stable along the lateral right mid to lower lung field. Series 4 image 41 some minimal subsegmen poornima atelectasis is at the posterior medial right lung base There is an azygos fissure pleasant, alfredo l variant No enlarged mediastinal or hilar adenopathy is evident. The ascending aorta diameter at the level o f the main pulmonary artery is 3.2 cm. The main pulmonary artery diameter at the bifurcation is 2.7 cm. Moderate coronary artery calcifications present. Limited CT sections are obtained through the upper abdomen. There is a 1.7 cm cyst on the lateral inf erior right lobe liver. A smaller cyst is in the anterior right upper liver measuring 1.1 cm IMPRESSION: 1. No suspicious changes to suggest metastatic disease. 2. Stable tiny nodules from prior exam. Follow-up exam in one year is recommended. [facility], , 05/27/2024 7:40 PM
--- NOTE | 2024-05-27 21:55 | CT ---
EXAMINATION TYPE: CT abdomen wo/w con DATE OF EXAM: 05/27/2024 4:49 PM COMPARISON: 08/14/2023 CLINICAL INDICATION: Male, 78 years old with history of C64.2 MALIGNANT NEOPLASM OF LEFT KIDNEY,, Mal ignant Neoplasm left kidney, states 10% of kidney was removed x 3 years ago. TECHNIQUE: Axial images were obtained from above the diaphragm to the iliac crests in the axial plane at 5 mm thick sections. Reconstructed images are reviewed on the computer in the coronal plane. CONTRAST: 80 mL of Isovue 300. Study performed with Oral Contrast DLP: combined 2449.3 mGycm, Automated exposure control for dose reduction was used. FINDINGS: Limited CT sections are obtained the lung bases. The lung bases are essentially clear. See CT chest same date. Coronary artery calcification is noted. CT ABDOMEN: Liver: There is a hepatic cyst in the anterior lateral right lower lobe the liver measuring 2.2 cm. Additional small cyst in the anterior right upper lobe liver measuring 1.1 cm. Spleen: Normal Pancreas: There is some fatty infiltration of the pancreas Adrenal glands: The adrenal glands are normal. Gallbladder: Normal Kidneys: No masses are evident. Postsurgical changes are within the posterior inferior left kidney. N o recurrent masses are identified. No hydronephrosis is present. No cysts are present. Delayed liu ges were obtained through the kidneys, which remain unremarkable. Aorta: Vascular calcification is within the aorta. Inferior vena cava: Normal. Loops of bowel within the abdomen and pelvis are normal. There are loops of bowel which are incom pletely distended or lack oral contrast limiting their evaluation. IMPRESSION: 1. Postsurgical changes within the left kidney. No recurrent masses are identified. [facility], , 05/27/2024 9:53 PM
== END | disposition home or self-care (01) ==
LOC: RADCTMAIN 14:13
PROVIDERS: ATTEND Urology
DX: C64.2 Malignant neoplasm of left kidney, except renal pelvis (principal); Z98.890 Other specified postprocedural states
CPT/HCPCS: 82565; 84520; 71260; 74170; 36415; Q9967